=== PATIENT | male | born 1965 | race Caucasian/White ===

== ENCOUNTER 2019-03-14 10:52 | Emergency (ER) | payer OTHER ==
[~2019-03-14] VITALS: Ht 175.3 cm; Wt 83.9 kg
[2019-03-14] MEDS ORDERED: Lipitor20 MG PO (11:12)
[2019-03-14] MEDS ORDERED: TRULICITY0.75 MG/0. (11:12)
[2019-03-14] MEDS ORDERED: METF500 PO (11:13)
[2019-03-14] MEDS ORDERED: LISI5 PO (11:13)
[2019-03-14] MEDS ORDERED: GABA300 PO (11:15)
[2019-03-14] MEDS ORDERED: PIOGLITAZONE HC30 MG PO (11:15)
[2019-03-14] MEDS ORDERED: CEPH500 PO (12:20)
[2019-03-14] MEDS ORDERED: Bactrim Ds Tab1 EACH PO (12:20)
== END 2019-03-14 12:47 | disposition home or self-care (01) ==
LOC: ER 10:52
DX: S81.802A Unspecified open wound, left lower leg, initial encounter (principal); S81.801A Unspecified open wound, right lower leg, initial encounter; L02.511 Cutaneous abscess of right hand; E11.40 Type 2 diabetes mellitus with diabetic neuropathy, unspecified; Z79.899 Other long term (current) drug therapy; Z87.891 Personal history of nicotine dependence; X58.XXXA Exposure to other specified factors, initial encounter
CPT/HCPCS: 10060; 73140; 87070; 87077; 87147; 87186; 87205; 99283-25

== ENCOUNTER 2019-11-07 23:07 | Inpatient (IN) | payer OTHER ==
[~2019-11-07] VITALS: Ht 180.3 cm; Wt 91.5 kg
[~2019-11-07 23:07] MED LIST: Bactrim Ds Tab1 EACH PO; CEPH500 PO; GABA300 PO; LISI5 PO; Lipitor20 MG PO; METF500 PO; PIOGLITAZONE HC30 MG PO; TRULICITY0.75 MG/0.
[2019-11-07 23:53] LABS: BASOPHILS ABSOLUTE AUTO 0.03 K/mm3 (0.00-0.23); BASOPHILS PERCENT AUTO 1 % (0-2); EOSINOPHILS ABSOLUTE AUTO 0.15 K/mm3 (0.00-0.68); EOSINOPHILS PERCENT AUTO 2 % (0-6); Hematocrit 23.8 % (37.0-53.0); Hemoglobin 7.7 g/dL (13.5-17.5); IMMATURE GRAN ABSOLUTE AUTO 0.04 K/mm3 (0.00-0.10); IMMATURE GRAN PERCENT AUTO 1 % (0-1); LYMPHOCYTES ABSOLUTE AUTO 1.26 K/mm3 (0.84-5.20); LYMPHOCYTES PERCENT AUTO 19 % (21-46); MONOCYTES ABSOLUTE AUTO 0.49 K/mm3 (0.16-1.47); MONOCYTES PERCENT AUTO 7 % (4-13); Mean Corpuscular HGB 28.7 pg (26.0-34.0); Mean Corpuscular HGB Conc 32.4 g/dL (31.5-36.5); Mean Corpuscular Volume 89 fL (80-100); Mean Platelet Volume 9.6 fL (9.1-12.4); NEUTROPHILS ABSOLUTE AUTO 4.68 K/mm3 (1.96-9.15); NEUTROPHILS PERCENT AUTO 70 % (41-73); Platelet Count 246 K/mm3 (150-400); RDW Standard Deviation 54.3 fL (35.1-46.3); Red Blood Cell Count 2.68 M/mm3 (4.30-5.90); White Blood Cell Count 6.65 K/mm3 (4.00-11.30)
[2019-11-08 00:16] LABS: Alanine Aminotransfer (ALT/SGP 21 U/L (12-78); Albumin, Blood 1.5 g/dL (3.4-5.0); Albumin/Globulin Ratio 0.4 (0.8-1.8); Alk Phos 129 U/L (50-136); Anion Gap 3 mmol/L (6-16); Aspartate Aminotrans (AST/SGOT 21 U/L (12-37); Bilirubin, Total <0.1 mg/dL (0.1-1.0); Blood Urea Nitrogen 18 mg/dL (8-24); Bun/Creatinine Ratio 16.7 (12.0-20.0); CO2, Blood 30 mmol/L (21-32); Calcium, Blood 7.6 mg/dL (8.5-10.1); Chloride, Blood 109 mmol/L (98-108); Creatinine, Blood 1.08 mg/dL (0.60-1.20); Globulin, Blood 3.5 g/dL (2.2-4.0); Glomerular Filtration Rate >60 (60-); Glucose, Blood 384 mg/dL (70-99); Potassium, Blood 3.9 mmol/L (3.5-5.5); Sodium, Blood 142 mmol/L (136-145)
[2019-11-08 01:56] LABS: Percent Saturation 28.1 % (20.0-50.0)
[2019-11-08 02:06] LABS: RETICULOCYTE ABSOLUTE 0.1019 M/mm3 (0.0200-0.1100); RETICULOCYTE COUNT PERCENT 3.86 % (0.50-2.50)
--- NOTE | 2019-11-08 05:51 | NUR ---
NATIONAL SALES MANAGER SUMMARY NEW ADMIT FROM THE ED TONIGHT. AAOX4 AND PLEASANT. ADMITTED WITH ACUTE CHF WHICH IS NEW FOR THE PT. PT COMPLAINED OF SOB FOR SEVERAL DAYS ESPECIALLY WHILE LYING DOWN. 3+ PITTING EDEMA NOTED TO BLE AND ABD AND GENERALIZED EDEMA EVERYWHERE ELSE. FAINT CRACKLES NOTED IN BASES OF LUNGS. PT REPORTS BREATHING HAS IMPROVED. GOT 20 MG IV LASIX IN ER AND GIVEN 60 MG MORE ONCE HE ARRIVED TO THE FLOOR. PT CAME TO FLOOR ON 2L O2 VIA NC. WAS SATTING 99% SO BUMPED DOWN TO 1L. WILL REMOVE O2 THIS AM IF SATS STILL MAINTAINING. PT IS VERY WEAK AND STATES HE IS WHEELCHAIR BOUND AT HOME BUT OVER THE LAST FEW WEEKS HAS HAD TROUBLE GETTING HIMSELF TO HIS WHEELCHAIR AND HAS BEED BEDBOUND. PT STATES HE HAS HAD INCREASED NUMBNESS/WEAKNESS THAT STARTED IN HIS LEGS AND HAS PROGESSED OVER THE LAST FEW YEARS. PT REPORTS CHRONIC ISSUES WITH DIARRHEA BUT HAS NOT HAD BM SINCE COMING TO HOSPITAL. HYPERTENSIVE IN ER BUT BETTER AFTER IV HYDRALAZINE AND PO METOPROLOL. NSR IN LUIS FERNANDO 60'S ON TELEMETRY. WILL CONTINUE TO MONITOR.
--- NOTE | 2019-11-08 10:02 | NUR ---
PT IS VERY TIME CONSUMING WITH POSITIONING. AIDE AND RN HAVE BEEN IN MULTIPLE TIMES THIS MORNING TO ATTEMPT TO GET HIM COMFORTABLE. PT STATES HE IS UNABLE TO PARTICIPATE AND HELP YET MOVES HIS EXTREMITIES ON HIS OWN . PT CONTINUES TO WANT DIFFERENT POSITIONS AND WHEN PLACED IN THEM ASKS TO BE MOVED TO ANOTHER ONE.
[2019-11-08 10:17] LABS: Mean Corpuscular HGB 29.8 pg (26.0-34.0); Mean Corpuscular HGB Conc 33.7 g/dL (31.5-36.5); Mean Corpuscular Volume 88 fL (80-100); Platelet Count 194 K/mm3 (150-400); RDW Coefficient Variation 17.2 % (11.7-14.2); RDW Standard Deviation 53.1 fL (35.1-46.3); Red Blood Cell Count 0.94 M/mm3 (4.30-5.90); White Blood Cell Count 11.89 K/mm3 (4.00-11.30)
[2019-11-08 10:21] LABS: Hematocrit 8.3 % (37.0-53.0); Hemoglobin 2.8 g/dL (13.5-17.5)
[2019-11-08 10:34] LABS: CPK Creatine Kinase 124 U/L (39-308); Free Thyroxine 0.81 ng/dL (0.70-1.60); Troponin I <0.015 ng/mL (0.000-0.040)
[2019-11-08 10:37] LABS: Alanine Aminotransfer (ALT/SGP 23 U/L (12-78); Albumin, Blood 1.7 g/dL (3.4-5.0); Albumin/Globulin Ratio 0.6 (0.8-1.8); Alk Phos 115 U/L (50-136); Anion Gap 6 mmol/L (6-16); Aspartate Aminotrans (AST/SGOT 24 U/L (12-37); Bilirubin, Total <0.1 mg/dL (0.1-1.0); Blood Urea Nitrogen 19 mg/dL (8-24); Bun/Creatinine Ratio 16.7 (12.0-20.0); CO2, Blood 29 mmol/L (21-32); Calcium, Blood 7.6 mg/dL (8.5-10.1); Chloride, Blood 109 mmol/L (98-108); Creatinine, Blood 1.14 mg/dL (0.60-1.20); Glomerular Filtration Rate >60 (60-); Glucose, Blood 293 mg/dL (70-99); Potassium, Blood 3.4 mmol/L (3.5-5.5); Sodium, Blood 144 mmol/L (136-145); Total Protein, Blood 4.7 g/dL (6.4-8.2)
[2019-11-08 11:03] LABS: Hemoglobin 6.5 g/dL (13.5-17.5)
--- NOTE | 2019-11-08 12:00 | NUR ---
ICU NOTE Assumed care of pt upon arrival to ICU 5 at 1115. Pt arrived to unit accomapanied by Zoie LEE. Pt transferred to ICU due to hemoglobin of 2.8. Upon arrival to unit, pt alert and oriented to self and place. Answers questions appropriately. Able to verbalize needs. Follows commands. Denies lightheadness or dizziness. When asked if he is feeling short of breath, pt states "yes". When asked if shortness of breath is better or worse than when he came to hospital, he states he is not sure. Pt arrived wearing 2 LPM NC. SpO2 98-99%. Pt denies pain. Abdomen and back palpated, pt continues to deny pain. Pt is pale in appearance, but still has pink tones in skin. Full skin assessment performed. No bruising visible. Phelbotomist at bedside immediately upon pt arrival to draw type & screen and H&H. H&H rechecked to evaluate validity of specimen indicating HGB 2.8. Dr Maharaj at bedside to assess pt upon arrival to ICU. Provider states tea tree farm worker consultation is not necessary at this time. Dr Maharaj notified of results of H&H redraw. Provider orders for one unit of PRBCs to be transfused and pt may be transferred to PCU. Pt has liquid stool, GI panel and C. diff pending. Pt in contact isolation until negative results received. Pt has red and irritated skin to gluteal fold. Pt agreeable to insertion of rectal tube. Pt states he has to pee. Pt spent 15 minutes trying to void into urinal. Bladder scan performed. Greater than 500 mL in urine measured by bladder scanner. Pt agreeable to insertion of Barriga cathteter. 16 FR catheter inserted. 400 mL of hazy urine immediately into collection bag. Sample sent. Pt is profoundly weak. Bedbound at baseline. States he has not walked in over four months. States progressive weakness with no known cause. States he lives with his daughter. When asked about transferring to chair, pt states "I have to be hugged" in order to stand and transfer. This RN inquires if pt has a lift at home to help him stand up, he states no. This RN asks pt if he thinks his daughter is capable of providing all the care he needs. Pt states he is unsure and then verbalizes frustration about getting help with ADLs- he specifically speaks about his granddaughter not wanting to help him comb his hair. This RN updated pt's daughter, Trinity [phone], about transfer and further plan of care. Daughter verbalizes understanding. Daughter states they were in the process of transitioning pt to hospice, stating she has been in discussion with Agueda. This RN notified palliative care nurse, Ryanne LEE.
--- NOTE | 2019-11-08 12:15 | NUR ---
O2 TITRATION AND SKIN ASSESSMENT Titrated from 2 LPM NC to RA. SpO2 90% or greater. In addition to previous noted skin assessment, pt has several scabbed scratches to BLE. When asked about origin of scratches, pt states "I'm not sure. We have a cat at home but it doesn't come near me. I have really sharp nails but I think what's actually going on is my house is haunted."
[2019-11-08 12:48] LABS: Source, Urine Clean Catch
[2019-11-08 12:51] LABS: Bilirubin, Urine Neg (Neg); Blood, Urine 2+ (Neg); Glucose Qualitative, Urine 4+ (Neg); Ketones, Urine Neg (Neg); Leukocyte Esterase, Urine 2+ (Neg); Nitrite, Urine Neg (Neg); Protein, Urine 4+ (Neg); Urobilinogen, Urine NORM (Normal)
[2019-11-08 12:55] LABS: Campylobacter Sp Not Detected (NOT DETECT)
[2019-11-08 12:56] LABS: Adenovirus F 40/41 Not Detected (NOT DETECT); Astrovirus Not Detected (NOT DETECT); Cryptosporidium Not Detected (NOT DETECT); Cyclospora Cayetanensis Not Detected (NOT DETECT); E. Coli O157 Not Detected (NOT DETECT); Entamoeba Histolytica Not Detected (NOT DETECT); Enteroaggregative E. coli-EAEC Detected (NOT DETECT); Enteropathogenic E. coli-EPEC Not Detected (NOT DETECT); Enterotoxigenic E. coli-ETEC Not Detected (NOT DETECT); Giardia Lamblia Not Detected (NOT DETECT); Norovirus GI/GII Not Detected (NOT DETECT); Plesiomonas Shigelloides Not Detected (NOT DETECT); Rotavirus A Not Detected (NOT DETECT); Salmonella Sp Not Detected (NOT DETECT); Sapovirus Not Detected (NOT DETECT); Shiga Toxin-prod E. coli-STEC Not Detected (NOT DETECT); Shigella/Enteroin E. coli-EIEC Not Detected (NOT DETECT); Vibrio Cholerae Not Detected (NOT DETECT); Vibrio Sp Not Detected (NOT DETECT); Yersinia Enterocolitica Not Detected (NOT DETECT)
[2019-11-08 13:07] LABS: Color, Urine Pale Yellow (P-Yellow)
[2019-11-08 13:08] LABS: Appearance, Urine Hazy (Clear)
[2019-11-08 13:10] LABS: White Blood Cells, Urine 50-100 /hpf (0-5)
[2019-11-08 13:11] LABS: Bacteria Mod /hpf; Squamous Epithelial Cells Rare /hpf (Few)
--- NOTE | 2019-11-08 14:58 | NUR ---
CALL PLACED TO DR ELLINGTON AND TRANSFER TO PCU This RN placed call to Dr Ellington because pt was not tolerating Sosa catheter. Pt educated that it was inserted due to urinary retention. Pt threatens to pull catheter out. Per Dr Ellington, sosa catheter may be removed. This RN discussed results of urinalysis, GI panel with provider. Pt is likely colonized with C. diff as C. diff toxin is negative. Provider states he will review chart and decide if pt needs antibiotics for potential UTI. Telephone report given to Lesvia LEE. Pt worked with speech therapist, Trinity, prior to transfer to PCU. Pt taken to PCU 2 accompanied by PCT L[place]. Pt transferred via bed. Meds, chart, belongings transferred with patient.
[2019-11-08 16:41] LABS: CPK Creatine Kinase 151 U/L (39-308); Troponin I <0.015 ng/mL (0.000-0.040)
[2019-11-08 17:09] LABS: Hematocrit 26.6 % (37.0-53.0); Hemoglobin 8.6 g/dL (13.5-17.5)
--- NOTE | 2019-11-08 20:03 | NUR ---
SHIFT SUMMARY - TRANSFER NOTE RECEIVED REPORT FROM BERE CAMPOS RN IN ICU. PT TO ROOM VIA BED AT 1430; 4 PERSON TRANSFER ASSIST WITH SLIDER SHEET. PT RECEIVING 1 UNIT OF PRBC UPON TRANSFER. PT ORIENTED TO ROOM AND CALL LIGHT; PT PROVIDED WITH SOFT TOUCH CALL LIGHT HE STATES HE IS UNABLE TO SEE AND PRESSURE A REGULAR CALL LIGHT. PT A&Ox2; COOPERATIVE WITH CARE; IRRITABLE AT TIMES. PT DENIES PAIN, CHEST PAIN/PRESSURE, NAUSEA AND DIZZINESS. PT REPORTS SOB WITH ACTIVITY, SPO2 >90% ON RA SINCE T/O SHIFT. PT RECEIVING EYE DROPS FOR BILATERAL CONJUNCTIVITIS. RECTAL TUBE IN PLACE. PT REFUSED CATHETER AND IT WAS REMOVED IN ICU/ BP ELEVATED; OTHER VSS. NO OTHER ACUTE CHANGES NOTED DURING SHIFT. REPORT GIVEN TO ONCOMING RN.
[2019-11-09 01:50] LABS: BASOPHILS ABSOLUTE AUTO 0.04 K/mm3 (0.00-0.23); BASOPHILS PERCENT AUTO 1 % (0-2); EOSINOPHILS ABSOLUTE AUTO 0.12 K/mm3 (0.00-0.68); EOSINOPHILS PERCENT AUTO 1 % (0-6); Hematocrit 24.5 % (37.0-53.0); IMMATURE GRAN ABSOLUTE AUTO 0.05 K/mm3 (0.00-0.10); IMMATURE GRAN PERCENT AUTO 1 % (0-1); LYMPHOCYTES ABSOLUTE AUTO 1.23 K/mm3 (0.84-5.20); LYMPHOCYTES PERCENT AUTO 15 % (21-46); MONOCYTES ABSOLUTE AUTO 0.53 K/mm3 (0.16-1.47); MONOCYTES PERCENT AUTO 6 % (4-13); Mean Corpuscular HGB Conc 32.7 g/dL (31.5-36.5); Mean Corpuscular Volume 89 fL (80-100); Mean Platelet Volume 9.5 fL (9.1-12.4); NEUTROPHILS ABSOLUTE AUTO 6.51 K/mm3 (1.96-9.15); NEUTROPHILS PERCENT AUTO 77 % (41-73); Platelet Count 204 K/mm3 (150-400); RDW Coefficient Variation 17.2 % (11.7-14.2); RDW Standard Deviation 54.4 fL (35.1-46.3); Red Blood Cell Count 2.76 M/mm3 (4.30-5.90); White Blood Cell Count 8.48 K/mm3 (4.00-11.30)
[2019-11-09 02:02] LABS: Albumin, Blood 1.8 g/dL (3.4-5.0); Albumin/Globulin Ratio 0.5 (0.8-1.8); Bilirubin, Total 0.1 mg/dL (0.1-1.0); Bun/Creatinine Ratio 16.2 (12.0-20.0); Calcium, Blood 7.7 mg/dL (8.5-10.1); Creatinine, Blood 1.36 mg/dL (0.60-1.20); Globulin, Blood 3.3 g/dL (2.2-4.0); Magnesium, Blood 2.3 mg/dL (1.6-2.4); Potassium, Blood 3.7 mmol/L (3.5-5.5); Total Protein, Blood 5.1 g/dL (6.4-8.2); Troponin I 0.018 ng/mL (0.000-0.040)
[2019-11-09 02:22] LABS: Thyroid Stimulating Hormone 7.08 uIU/mL (0.360-4.800)
--- NOTE | 2019-11-09 06:26 | NUR ---
END OF SHIFT SUMMARY NO ACUTE CHANGES THIS SHIFT. VSS EXCEPT HTN, MEDS PER EMAR. PT'S NUMBNESS, WEAKNESS AND COMFORT HAVE BEEN ADDRESSED MULTIPLE TIMES THIS SHIFT. AT TIMES, PT TURNED AND REPOSITIONED EVERY 10 MINUTES. PT CAN BE VERY IRRITABLE AND UNGRATEFUL AT TIMES WELL BUT OTHER TIMES THANKFUL. PT NOTABLY STRUGGLING TO SEE BUT THIS IS BASELINE X'S A FEW MONTHS. RECTAL TUBE REMAINS IN PLACE FOR C. DIFF. VERY LITTLE OUTPUT. BLADDER SCANS X2 COMPLETED, PT RETAINING FLUIDS DESPITE BEING GIVEN DIURETICS. STRAIGHT CATH COMPLETED, 350 URINE OUT DESPITE BLADDER SCAN OF CLOSE TO 450. PT UPSET REGARDING DIET ORDERS, CONFORT, AND AROUND ASPECTS OF HEALTH. MUCH CARE HAS BEEN GIVEN TO THIS PATIENT IN TERMS OF TURNING, EDUCATION, ETC. WILL CONTINUE TO MONITOR UNTIL SHIFT CHANGE.
--- NOTE | 2019-11-09 10:00 | NUR ---
UPDATE PT ALERT AND ORIENTED. VS STABLE. HR SINUS RANCHO. O2 SATS REMAIN ABOVE 90% ON RA. RECTAL TUBE IN PLACE DRAINING LIQUID BROWN STOOL. PT DENIES ANY NAUSEA. PT REPOSITIONED NEEDED. DR. DIAZ IN THIS AM WITH ORDERS TO TRANSFER TO MEDICAL FLOOR AND DISCONTINUE TELEMETRY. AWAITING PLAN FROM GI STANDPOINT. PT STATES THAT HE WILL REFUSE A COLONOSCOPY. REPORT CALLED TO MEDICAL FLOOR RN. PT TAKEN UP BY BED.
[2019-11-09 17:09] LABS: Hematocrit 24.4 % (37.0-53.0); Hemoglobin 7.8 g/dL (13.5-17.5)
--- NOTE | 2019-11-09 19:00 | NUR ---
LATE ENTRY FOR SHIFT SUMMARY- PT IS A/O, COOPERATIVE. SLEPT INTERMITENTLY THROUGHOUT THIS SHIFT. PLAN TO PREFORM A COLONOSCOPY AND UPPER SCOPE TOMORROW. PT HGB WAS BELOW 8 AND BEGAN BLOOD TRANSFUSION PER DR. MCKEON ORDERS. NOTIFIED PT OF ORDERS FOR BOWEL PREP, PT STATED THAT HE DID NOT WANT A COLONOSCOPY, DISCUSSED WITH PT AND TOLD HIM THAT HE HAD THE RIGHT TO REFUSE IF HE DID NOT WANT THAT PROCEDURE. PT IS ON A LIQUID DIET. TOOK VITALS AND BEGAN BLOOD TRANSFUSION JUST BEFORE SHIFT CHANGE, GAVE REPORT TO ONCOMING NURSE JUST 15 MIN VITALS WERE DUE. PT SITTING UP IN BED AT THIS TIME
--- NOTE | 2019-11-09 20:45 | NUR ---
PATIENT ARRIVED TO ICU 5 VIA BED TRANSFER FROM ROOM 333 POST RESP CODE. PATIENT INTUBATED AND BEING BAGGED PER ETT BY RT. PROPOFOL INFUSING AT 40 MCG. PATIENT OPENING EYES AND MOVING SPONT, PROPOFOL INCREASED TO 50 MCG TO HELP PATIENT RELAX. PATIENT TRANSFERRED TO ICU BED USING SLIDER SHEET, PLACED ON ICU MONITORS AND PLACED ON VENT BY RT SET AT AC 16, TV 450, PEEP 5, FIO2 40%. OG PLACED, AND GUNN CATH PLACED WITH NO DIFFICULTY, CLOUDY YELLOW URINE DRAINING, SPEC SENT TO LAB. MIKE PATEL AT BEDSIDE.
[2019-11-09 21:14] LABS: BASOPHILS ABSOLUTE AUTO 0.03 K/mm3 (0.00-0.23); BASOPHILS PERCENT AUTO 1 % (0-2); EOSINOPHILS ABSOLUTE AUTO 0.11 K/mm3 (0.00-0.68); EOSINOPHILS PERCENT AUTO 2 % (0-6); Hematocrit 30.6 % (37.0-53.0); Hemoglobin 9.9 g/dL (13.5-17.5); IMMATURE GRAN ABSOLUTE AUTO 0.02 K/mm3 (0.00-0.10); IMMATURE GRAN PERCENT AUTO 0 % (0-1); LYMPHOCYTES ABSOLUTE AUTO 1.47 K/mm3 (0.84-5.20); LYMPHOCYTES PERCENT AUTO 23 % (21-46); MONOCYTES ABSOLUTE AUTO 0.45 K/mm3 (0.16-1.47); MONOCYTES PERCENT AUTO 7 % (4-13); Mean Corpuscular HGB 28.7 pg (26.0-34.0); Mean Corpuscular HGB Conc 32.4 g/dL (31.5-36.5); Mean Corpuscular Volume 89 fL (80-100); Mean Platelet Volume 10.3 fL (9.1-12.4); NEUTROPHILS ABSOLUTE AUTO 4.28 K/mm3 (1.96-9.15); NEUTROPHILS PERCENT AUTO 67 % (41-73); Platelet Count 247 K/mm3 (150-400); RDW Coefficient Variation 17.9 % (11.7-14.2); RDW Standard Deviation 56.6 fL (35.1-46.3); Red Blood Cell Count 3.45 M/mm3 (4.30-5.90); White Blood Cell Count 6.36 K/mm3 (4.00-11.30)
[2019-11-09 21:22] LABS: PCO2 Arterial 34.9 mmHg (35-45); PO2 Arterial 78.1 mmHg (80-100); pH Blood Arterial 7.52 (7.35-7.45)
[2019-11-09 21:42] LABS: Albumin, Blood 1.9 g/dL (3.4-5.0); Albumin/Globulin Ratio 0.5 (0.8-1.8); Bilirubin, Total 0.2 mg/dL (0.1-1.0); Bun/Creatinine Ratio 16.8 (12.0-20.0); Calcium, Blood 8.2 mg/dL (8.5-10.1); Creatinine, Blood 1.49 mg/dL (0.60-1.20); Free Thyroxine 0.92 ng/dL (0.70-1.60); Globulin, Blood 3.9 g/dL (2.2-4.0); Magnesium, Blood 2.4 mg/dL (1.6-2.4); Phosphorus, Blood 6.2 mg/dL (2.5-4.9); Potassium, Blood 4.5 mmol/L (3.5-5.5); Total Protein, Blood 5.8 g/dL (6.4-8.2)
[2019-11-09 21:43] LABS: Source, Urine Catheter
[2019-11-09 21:44] LABS: Triiodothyronine, Free 1.83 pg/mL (2.18-3.98)
[2019-11-09 21:45] LABS: Bilirubin, Urine Neg (Neg); Blood, Urine 2+ (Neg); Glucose Qualitative, Urine 3+ (Neg); Ketones, Urine Neg (Neg); Leukocyte Esterase, Urine 1+ (Neg); Nitrite, Urine Neg (Neg); Protein, Urine 4+ (Neg); Urobilinogen, Urine NORM (Normal)
[2019-11-09 21:51] LABS: Appearance, Urine Cloudy (Clear); Color, Urine Yellow (P-Yellow)
[2019-11-09 21:52] LABS: Amorphous Heavy (0-Heavy); Bacteria Few /hpf; Red Blood Cells, Urine 0-2 /hpf (0-2); Squamous Epithelial Cells Not Seen /hpf (Few)
[2019-11-09 22:03] LABS: U Amphetamine Screen Not Detected; U Barbituate Screen Not Detected; U Benzodiazapine Screen Not Detected; U Buprenorphine Screen Not Detected; U Cannabinoids Screen Not Detected; U Cocaine Screen Not Detected; U Methadone Screen Not Detected; U Methamphetamine Screen Not Detected; U Opiates Screen DETECTED; U Oxycodone Screen Not Detected; U Phencyclidine Screen Not Detected; U Propoxyphene Screen Not Detected
[2019-11-09 22:58] LABS: PCO2 Arterial 31.6 mmHg (35-45); PO2 Arterial 58.5 mmHg (80-100); pH Blood Arterial 7.57 (7.35-7.45)
--- NOTE | 2019-11-10 00:24 | NUR ---
11/09/192099 Patient had unit of blood checked and started at 1850 by Lillie Brown and Jeri Marquez just as this screen writer was coming on shift. Patient was assessed, He was alert and oriented, he was very pale, eyes red. Pt had edema in hands and legs and feet. 1929 vital signs were done and blood transfusion rate increased form 75 to 125 cc/hr. Pt stated he did not want a colonoscopy and refused the golytly. At about 2024 RESTAURANT TEAM MEMBER went into room to do blood sugar and it was 220. RESTAURANT TEAM MEMBER found pt to be cyanotic and with agonal breathing. Pt was unresponsive to verbal and sternal rub. Pt was a full code so a Code blue was called. Pt did have a pulse. Blood transfusion was stopped. Pt was intubated and transferred to ICU 5. Report was given to Irina. Daughter was notified of transfer by code team. All belongings were transferred with patient.
--- NOTE | 2019-11-10 00:30 | NUR ---
PATIENT GUNN TEMP PROBE READING 93.2 TEMPORAL READING 94.0 DESPITE WARM BLANKETS PLACED ON PATIENT AT 2130. BEAR HUGGER BLANKET PLACED OVER PATIENT. MIKE SYSTEM CONFIGURATION SPECIALIST AWARE OF LOW TEMP AND THAT HEAD CT AND CHEST CT ARE COMPLETE.
[2019-11-10 03:19] LABS: BASOPHILS ABSOLUTE AUTO 0.03 K/mm3 (0.00-0.23); BASOPHILS PERCENT AUTO 1 % (0-2); EOSINOPHILS PERCENT AUTO 2 % (0-6); Hematocrit 25.4 % (37.0-53.0); Hemoglobin 8.4 g/dL (13.5-17.5); IMMATURE GRAN ABSOLUTE AUTO 0.02 K/mm3 (0.00-0.10); IMMATURE GRAN PERCENT AUTO 0 % (0-1); LYMPHOCYTES ABSOLUTE AUTO 1.66 K/mm3 (0.84-5.20); LYMPHOCYTES PERCENT AUTO 26 % (21-46); MONOCYTES ABSOLUTE AUTO 0.58 K/mm3 (0.16-1.47); MONOCYTES PERCENT AUTO 9 % (4-13); Mean Corpuscular HGB 29.1 pg (26.0-34.0); Mean Corpuscular HGB Conc 33.1 g/dL (31.5-36.5); Mean Corpuscular Volume 88 fL (80-100); Mean Platelet Volume 9.7 fL (9.1-12.4); NEUTROPHILS ABSOLUTE AUTO 4.02 K/mm3 (1.96-9.15); NEUTROPHILS PERCENT AUTO 63 % (41-73); Platelet Count 204 K/mm3 (150-400); RDW Coefficient Variation 17.5 % (11.7-14.2); RDW Standard Deviation 55.2 fL (35.1-46.3); Red Blood Cell Count 2.89 M/mm3 (4.30-5.90); White Blood Cell Count 6.41 K/mm3 (4.00-11.30)
[2019-11-10 03:32] LABS: Bun/Creatinine Ratio 16.4 (12.0-20.0); Calcium, Blood 7.5 mg/dL (8.5-10.1); Creatinine, Blood 1.52 mg/dL (0.60-1.20); Potassium, Blood 3.1 mmol/L (3.5-5.5)
--- NOTE | 2019-11-10 04:45 | NUR ---
PATIENT OPENING EYES SPONTANEOUSLY, CHEWING ON ETT, PROPOFOL INCREASED TO 55MCG. GUNN TEMP PROBE READING 99.0 BEAR HUGGER OFF.
--- NOTE | 2019-11-10 06:00 | NUR ---
SUMMARY PATIENT REMAINS INTUBATED AND SEDATED WITH PROPOFOL AT 55 MCG. VENT AC 16, TV 450, PEEP 5, FIO2 40% SUCTIONING SMALL AMT OF CLEAR SECRETIONS. OG REMAINS CLAMPED. GENERALIZED SWELLING CONTINUES. BILAT WRIST RESTRAINTS TO PREVENT ACCIDENTAL EXTUBATION DUE TO UNPREDICTABLE SEDATION AND BEHAVIOR.
--- NOTE | 2019-11-10 08:30 | NUR ---
INITIAL ASSESSMENT PATIENT INTUBATED AND SEDATED. PATIENT RESPONDING TO NURSING CARE AND PAINFUL STIMULI. PATIENT HAS GROSS MOVEMENT NOTED TO EXTREMITIES AND GRIMACES TO ORAL CARE. NO PUPIL REACTION NOTED TO LIGHT, DOLL'S EYES NOTED. SKIN AROUND EYES REDDENED AND CRUSTING NOTED. NO SIGNS OF PAIN AT THIS TIME. PATIENT AFEBRILE. PATIENT SATTING 90% AND GREATER ON AC 16, TV 450, PEEP 5 AND 40% FIO2. LUNGS CLEAR IN UPPER LOBES AND DIMINISHED IN LOWER LOBES. PATIENT IN SR WITH PROLONGED QT INTERVAL. HR IN THE 60S. BP STABLE. SCDS IN PLACE. PATIENT EDEMATOUS ON MOST OF BODY. ABDOMEN MODERATELY DISTENDED, SOFT, WITH HYPOACTIVE BS NOTED. OG IN PLACE; CLAMPED AT THIS TIME. FINANCIAL SUPERVISOR STATED PATIENT'S BMS HAVE BEEN BROWN AND MUCOUSY. GUNN IN PLACE, DRAINING MINIMAL AMOUNT OF YELLOW COLORED URINE. PATIENT RECEIVING SCHEDULED LASIX BID. SKIN PALE IN COLOR. MANY SCABS NOTED TO BLES. GLUTEAL FOLD AND SACRUM REDDENED. RASH TO L AXILLA NOTED. PROPOFOL INFUSING AT 55 MCG/ KG/ MINUTE. PATIENT RECEIVING 40 MEQ KCL THIS AM FOR POTASSIUM OF 3.1. BED LOW, CALL LIGHT IN REACH. WILL CONTINUE TO MONITOR PATIENT FREQUENTLY THROUGHOUT SHIFT.
--- NOTE | 2019-11-10 11:07 | NUR ---
DR. SAMAYOA UPDATED ON PATIENT STATUS/ CONDITION. INFORMED THAT PATIENT EDEMATOUS. INFORMED THAT DR. DIAZ HERE TO SEE PATIENT THIS AM. DR. CAMPUZANO INFORMED NURSE THAT PATIENT AND HIS DAUGHTER HAD BEEN DISCUSSING COMFORT CARE FOR HIM BEFORE ADMIT. DR. SAMAYOA STATED SHE ORDERED PALLIATIVE CARE AND WILL HAVE SPEAK WITH DAUGHTER. INFORMED THAT PATIENT HAD TEMP DOWN TO 93 DEGREES FAHRENHEIT AND PLACED ON BARE HUGGER ON JUMPBASTING MACHINE OPERATOR PER NIGHT RN. PATIENT HAS NORMAL TEMP AT THIS TIME. INFORMED THAT PATIENT MAY HAVE UTI. INFORMED THAT PATIENT HAD POTASSIUM OF 3.1 AND THAT PATIENT RECEIVING 40 MEQ KCL THIS AM. INFORMED THAT PATIENT HAS OG IN PLACE AND IS CLAMPED. INFORMED THAT PATIENT UNABLE TO RECEIVE ORDERED CIPRO CANNOT CRUSH. INFORMED THAT PATIENT RECEIVING LASIX BID. NO ORDERS RECEIVED AT THIS TIME.
[2019-11-10 12:24] LABS: Magnesium, Blood 2.2 mg/dL (1.6-2.4); Potassium, Blood 3.6 mmol/L (3.5-5.5)
--- NOTE | 2019-11-10 12:30 | NUR ---
PATIENT REMAINS INTUBATED AND SEDATED. NO SIGNS OF PAIN. PATIENT AFEBRILE. PATIENT REMAINS SATTING 90% AND GREATER ON SAME VENT SETTINGS. PATIENT IN SB TO SR, HR 50S TO 60S. BP SOFT TO STABLE. URINE YELLOW, CLOUDY, WITH SEDIMENT NOTED. NO OTHER ACUTE CHANGES TO NOTE ON AT THIS TIME. WILL CONTINUE TO MONITOR.
--- NOTE | 2019-11-10 13:41 | NUR ---
BLOOD BANK CALLED AND SAID THAT TRANSFUSION REACTION WAS DETERMINED TO BE CIRCULATORY OVERLOAD AND TO INFUSE BLOOD SLOWLY IF ANOTHER UNIT NEEDED IN THE FUTURE.
--- NOTE | 2019-11-10 14:46 | NUR ---
Pt resting in bed and is intubated. Pt appears comfortable with no S/S of distress at this time. Conferenced with Dr Umana, Dr Garza, Bedside RN Gertrude, Criminal Analyst Tim, Caremanager Kerr, [facility] hot frame tender Kristie, and Pt's daughter Trinity. Trinity reports Pt's wishes are for end of life care and Amysis recently out to home for evaluation. Kristie from [facility] confirms Pt's wishes are for end of life care and wishes to avoid hospitalization. Dahiana Petersen confirms Pt would not want to be intubated or receive CPR or life sustaining measures. Care team is in agreement to follow Pt's wishes and plan is for Pt to have terminal withdrawal of care tomorrow 11/11/19. Dr Umaan will change code status to DNR. Plan is for staff to contact dahiana Petersen in the AM when withdrawal of care is ready to be initiated. Dahiana Petersen [phone] Palliative Care will remain available for therapeutic visits.
--- NOTE | 2019-11-10 15:06 | NUR ---
DR. SAMAYOA INFORMED THAT PATIENT URINE POSITIVE FOR ENTEROCOCCUS FAECALIS. INFORMED THAT PATIENT ON CIPRO IV. NO ORDERS RECEIVED AT THIS TIME.
--- NOTE | 2019-11-10 16:30 | NUR ---
PATIENT REMAINS INTUBATED AND SEDATED. AFEBRILE. NO SIGNS OF PAIN. PATIENT REMAINS SATTING 90% AND GREATER ON SAME VENT SETTINGS. PATIENT REMAINS IN SB, HR IN THE 50S. BP STABLE. PROPOFOL INFUSING AT 40 MCG/ KG/ MINUTE. NO OTHER ACUTE CHANGES TO NOTE ON AT THIS TIME. WILL CONTINUE TO MONITOR.
[2019-11-10 18:09] LABS: T-TRANSGLUTAMINASE (TTG) IGA <2 U/mL (0-3); T-TRANSGLUTAMINASE (TTG) IGG 4 U/mL (0-5)
--- NOTE | 2019-11-10 18:55 | NUR ---
SHIFT SUMMARY PATIENT REMAINED INTUBATED AND SEDATED. PATIENT REMAINS RESPONDING TO PAINFUL STIMULI. EYES REMAIN RED AND CRUSTING. PATIENT RECEIVING SCHEDULED EYE DROPS. PATIENT HAS REMAINED AFEBRILE. PATIENT HAS HAD NO SIGNS OF PAIN. PATIENT HAS REMAINED SATTING 90% AND GREATER ON AC 16, TV 450, PEEP 5 AND 40% FIO2. PATIENT HAS REMAINED IN SB TO SR WITH PROLONGED QT INTERVAL. HR 50S TO 60S. BP SOFT TO STABLE. SCDS REMAINED IN PLACE. ABDOMEN REMAINED MODERATELY DISTENDED, SOFT, WITH HYPOACTIVE BS NOTED. OG REMAINED CLAMPED. NO BM THIS SHIFT. GUNN DRAINED 418 MLS OF YELLOW, CLOUDY URINE WITH SEDIMENT NOTED. PATIENT CONTINUED TO RECEIVE SCHEDULED DIURETICS BID. NO CHANGE TO SKIN. PATIENT REPOSITIONED Q2H. PROPOFOL INFUSING AT 40 MCG/ KG/ MINUTE AND WAS HIGHEST AT 55 MCG/ KG/ MINUTE ON DAY SHIFT. PATIENT RECEIVING IV CIPRO. PATIENT HAD 40 MEQ KCL THIS AM. POTASSIUM WENT UP FROM 3.1 TO 3.6. BLOOD SUGARS 107 TO 128. PALLIATIVE CARE SPOKE WITH PATIENT'S DAUGHTER AND PATIENT PLANNED TO BE CHANGED TO COMFORT CARE TOMORROW WHEN DAUGHTER GETS HERE. PATIENT APPEARS COMFORTABLE AT THIS TIME. BED LOW, CALL LIGHT IN REACH. REPORT WILL BE GIVEN TO ASSUMING HOSPITAL SCIENTIST SHORTLY.
--- NOTE | 2019-11-10 19:10 | NUR ---
REPORT GIVEN TO ASSUMING RETURNED GOODS RECEIVING CLERK NURSE.
--- NOTE | 2019-11-10 22:23 | NUR ---
ASSUMED CARE OF PT AT 1900. PT IS LIGHTLY SEDATED AT PROPOFOL 50. VENT WAS AC 16 TV 450 PEEP 5 FIO2 40%. PT NOW 60% AFER SUCTIONING MULTIPLE HEAVY SECRETIONS. PT VOMITED SHORTLY ATER BATH WITH NRSE PRESENT, LARGE AMOUNT YELLOW. SUCTION STARTED, DOCTOR AWARE. REDUCTION IN CURRENT SECRETIONS.
--- NOTE | 2019-11-11 02:10 | NUR ---
BRIONNA DAWSON APPLIED TO PT FOR BODY TEMP OF 92.7 F. PT'S TEMP CONTINUED TO DROP TO 97.3, BEFORE REBOUNDING TO 93F AFTER CHANGING TO HIGH SETTING. WILL CONTINUE UNTIL PT'S TEMP RECOVERS.
[2019-11-11 03:37] LABS: BASOPHILS ABSOLUTE AUTO 0.02 K/mm3 (0.00-0.23); BASOPHILS PERCENT AUTO 0 % (0-2); EOSINOPHILS ABSOLUTE AUTO 0.06 K/mm3 (0.00-0.68); EOSINOPHILS PERCENT AUTO 1 % (0-6); Hemoglobin 8.5 g/dL (13.5-17.5); IMMATURE GRAN ABSOLUTE AUTO 0.02 K/mm3 (0.00-0.10); IMMATURE GRAN PERCENT AUTO 0 % (0-1); LYMPHOCYTES ABSOLUTE AUTO 1.06 K/mm3 (0.84-5.20); LYMPHOCYTES PERCENT AUTO 15 % (21-46); MONOCYTES ABSOLUTE AUTO 0.65 K/mm3 (0.16-1.47); MONOCYTES PERCENT AUTO 9 % (4-13); Mean Corpuscular HGB 28.9 pg (26.0-34.0); Mean Corpuscular HGB Conc 31.5 g/dL (31.5-36.5); Mean Platelet Volume 10.5 fL (9.1-12.4); NEUTROPHILS ABSOLUTE AUTO 5.45 K/mm3 (1.96-9.15); NEUTROPHILS PERCENT AUTO 75 % (41-73); Platelet Count 191 K/mm3 (150-400); RDW Coefficient Variation 17.9 % (11.7-14.2); RDW Standard Deviation 59.8 fL (35.1-46.3); Red Blood Cell Count 2.94 M/mm3 (4.30-5.90); White Blood Cell Count 7.26 K/mm3 (4.00-11.30)
[2019-11-11 03:38] LABS: Mean Corpuscular Volume 92 fL (80-100)
[2019-11-11 03:55] LABS: Bun/Creatinine Ratio 14.4 (12.0-20.0); Calcium, Blood 7.3 mg/dL (8.5-10.1); Creatinine, Blood 1.87 mg/dL (0.60-1.20); Magnesium, Blood 2.1 mg/dL (1.6-2.4); Phosphorus, Blood 5.5 mg/dL (2.5-4.9); Potassium, Blood 3.2 mmol/L (3.5-5.5)
--- NOTE | 2019-11-11 06:08 | NUR ---
PT HAD TWO VERY LARGE LIQUID BOWEL MOVEMENTS REQUIRING BATHING AND BED CHANGE, WELL A VERY LARGE YELLOW EMESIS. PT HAS BEEN SUCTIONED FOR LARGE AMOUNTS OF SALIVA SINCE, BUT NO EMESIS, AND NOT YELLOW. PT BODY TEMP HAS RISEN TO 98.1, BRIONNA HUGGER TURNING DOWN TO MEDIUM. PT'S EDEMA IS NOW TIGHT ON UPPER ARMS. ANASARCA AND LEGS REMAIN SAME. VET SETTINGS NOW AC 16, TV 45, PEEP 5, FIO2 40%.
[2019-11-11 07:09] LABS: COMPLEMENT C4, SERUM 28 mg/dL (14-44)
--- NOTE | 2019-11-11 07:37 | NUR ---
ASSUMED CARE OF PT AT 0700. REPORT FROM MARRY LEE. PT INTUBATED AND SEDATED. VENT SETTINGS AC 16/450/5/40%. PROPOFOL INCREASED TO 45 MCG/KG/MIN. PT GRIMACES c CARE. DOES NOT FOLLOW DIRECTIONS. COUGH REFLEX PRESENT. LUNGS CLEAR. THICK WHITE/YELLOW SECRETIONS THROUGH ETT. PT PALE, WARM. TEMP 99.1. BRIONNA HUGGER REMOVED. OGT TO LOW INTERMITTANT SUCTION, BROWN EMESIS IN CANISTER. ABD ROUND, SOFT, NON TENDER. BT HYPOACTIVE. TEMP PROBE GUNN IN PLACE, PATENT, DRAINING CLEAR YELLOW URINE TO GRAVITY. SCROTAL SWELLING NOTED. MULTIPLE ABRASIONS AND ULCERATIONS TO LOWER EXTREMITIES, WORSE ON RIGHT. 2+ EDEMA TO LOWER EXTREMITIES, 3+ TO UPPER EXTREMITIES. GROSS MOVEMENT TO ALL EXTREMITIES. VSS PLAN FOR EXTUBATION TO HOSPICE CARE THIS SHIFT. WILL CONTINUE TO MONITOR.
[2019-11-11 15:10] LABS: RNP ANTIBODIES <0.2 AI (0.0-0.9); SJOGREN'S ANTI-SS-A <0.2 AI (0.0-0.9); SJOGREN'S ANTI-SS-B <0.2 AI (0.0-0.9); SMITH ANTIBODIES <0.2 AI (0.0-0.9)
--- NOTE | 2019-11-11 16:35 | NUR ---
AYLIN PRINCE AND CHRISTIAN, RT, AZEB BRITTON AND DR SAMAYOA AT BEDSIDE. PROPOFOL PLACED ON STANDBY AT 1554. PT ABLE TO FOLLOW COMMANDS. VENT SETTINGS CHANGED TO SPONTANEOUS, PT TOLERATING WELL. EXTUBATED AT 1619. PLACED ON 4L VIA NC. PT SPEAKS c SOFT HOARSE VOICE. STATES "I DONT HAVE ANY DAUGHTERS." PT APPEARS ANGRY. DOES NOT ANSWER OTHER QUESTIONS. VSS. WILL REASSESS MENTATION.
--- NOTE | 2019-11-11 16:55 | NUR ---
Pt's daughters Trinity and Adwoa have arrived for terminal extubation. Paper Supervisordelta Cohen and Bedside RN Tawana also present. Pt extubated and appears confused. Pt appears angry as evidenced by stating he does not have any daughters. Difficult to assess Pt's orientatioon. Pt does not answer questions regarding orientation. Daughter Trinity also appears angry and does not speak to Pt as she stands at bedside. Daughter Adwoa remains seated and is tearful. Emotional support offered. This RN revisted events leading up to this hospital stay including hospice to his home for evaluation. Asked Pt if hospice is still his goal with Pt stating "I don't know". Discussed with daughters regarding goals of care. Daughers agreeable for supportive care until Pt is more appropriate. Instructed daughters to call Palliative Care will any questions or concerns. Discussed case further with Bedside JESUS Gilliam, Dr Umana, and Chaplain Cohen. Plan will be supportive care until Pt's mentation improves. Palliative Care will remain available.
--- NOTE | 2019-11-11 17:18 | NUR ---
Initial spiritual care note: Provided supervisor counseling and guidance and comfort to pt's two dtrs before, during, and post extubation. Trinity cares for her dad in her home. Adwoa has been estranged from pt for 9 years. Both dtrs were quiet and withdrawn. Adwoa was tearful as she spoke to me about the reasons for their estrangement. Mr. Corona appeared angry and stated "I don't have any dtrs" which led to more tearfulness from Adwoa and Trinity. It was unclear to me that Mr. Corona understood questions or statements. He did admit to feeling angry, but could not clarify further. Offer of prayer declined. I will remain available.
--- NOTE | 2019-11-11 17:44 | NUR ---
SHIFT SUMMARY PT EXTUBATED THIS SHIFT. PLAN TO EXTUBATE TO COMFORT CARE. UPON EXTUBATION, PT DID NOT ACKNOWLEDGE DAUGHTERS AT BEDSIDE. WHEN ASKED BY AZEB FROM [facility] IF HE WISHED TO PURSUE HOSPICE, PT STATES "I DONT KNOW." PT REMAINS DNR STATUS, SUPPORTIVE CARE, PLAN TO REEVALUATE TOMORROW WHEN PT'S MENTATION IMPROVES. POST EXTUBATION, PT KNOWS YEAR, DOES NOT KNOW LOCATION. ABLE TO MAKE NEEDS KNOWN. DIFFICULT TO REPOSITION FOR COMFORT, MULTIPLE ATTEMPTS. LUNGS REMAIN COARSE, O2 SATS >95% ON 4L VIA NC. VSS. WILL CONTINUE TO MONITOR UNTIL REPORT TO ONCOMING NURSE.
--- NOTE | 2019-11-11 20:00 | NUR ---
INITAL SHIFT ASSESSMENT BED SIDE REPORT RECIEVED FROM OFF GOING RN. PT IS RESTING WITH EYES CLOSED IN BED. HE APPEARS TO HAVE NO RESPIRATORY DISTRESS AT REST. 4L N/C IN PLACE SATS 98%. N/C TITRATED DOWN TO 2L WHILE THIS RN IN ROOM. PT WOKE TO THIS NURSES VERBAL STIMULI. HE LOOKED AROUND THE ROOM AND ASKED WHERE HE WAS AND THIS RN STATED HE WAS IN THE HOSPITAL. HE STATED I KNOW THAT WHAT [place] AM I IN. PT WAS ABLE TO TELL THIS RN HIS DATE OF AND NAME. PT STATES HE IS UNCOMFORTABLE AND WANTED TO BE ADJUSTED IN BED. SECOND RN CALLED IN ROOM TO HELP. TWO RN'S THEN SPENT 15 MIN HELPING ADJUST PILLOWS AND HELP PT GET COMFORTABLE. THIS RN STAYED IN ROOM AND CON'T TO HELP PT WITH PILLOWS. THE PT PROCEDED TO CUSS AT THIS NURSE ALSO STATING WE WERE TRYING TO KILL HIM AND THAT HE WAS GOING TO . WHEN ASKED ABOUT PAIN HE STATED HE WAS IN PAIN AND WAS JUST GOING TO BE THAT WAY ALL NIGHT. FENTANYL IV WAS GIVEN TO PT SEE EMAR. THIS RN CON'T TO HELP PT WITH PILLOWS/LEGS/ARMS. HE IS NOW RESTING ON HIS LEFT SIDE AND APPEARS TO BE COMFORTABLE. IV TO LEFT HAND IS PATENT WITH BLOOD DRAWING BACK IN LINE. ARMS AND LEGS HAVE 3 PLUS EDEMA NOTED. GUNN CATH IN PLACE AND PATENT WITH YELLOW URINE. SCROTUM HAS EDEMA WELL. ATTENDS IN PLACE. WILL CON'T TO MONITOR AND KEEP PT SAFE T/O SHIFT. CALL LIGHT IN REACH. HOWEVER PT STATES HE CANNOT USE CALL LIGHT AND HE WILL JUST YELL IF HE NEEDS SOMETHING. PT HAS A VERY SOFT VOICE. ROOM TO DOOR IS LEFT OPEN.
--- NOTE | 2019-11-11 23:35 | NUR ---
ASSESSMENT PT HAS BEEN VERY UNPLESANT WITH ANY OF HIS CARE THIS EVENING. HE HAS BEEN CUSSING AT STAFF FOR ANY REASON. HE OVERALL SEEMS VERY UNSETTLED WITH HIS CARE TONIGHT. OFFERED HIM SOME ICE CHIPS AND HE STATES THAT WE ARE TRYING TO KILL HIM. HE IS REQUESTING TO GET UP TO A CHAIR AND WALK. OFFERED TO USE A LIFT AND HE STATES NO THAT AGAIN WE ARE TRYING TO KILL HIM WITH A LIFT. PT SITTING IN AN UPRIGHT POSITION AND RESTING WITH EYES CLOSED. PT REFUSED TO WEAR OXYGEN. SATS ARE HOLDING AT THIS TIME LOW 90'S. CHANGED BP TO ONLY BE MEASURED EVERY HOUR PER PT'S REQUEST THAT WE WERE BREAKING HIS ARM. WILL CON'T TO MONITOR AND KEEP PT SAFE T/O SHIFT.
--- NOTE | 2019-11-12 05:57 | NUR ---
SHIFT SUMMARY PT IS STABLE AT THIS TIME. HE CON'T TO REFUSE TO WEAR OXYGEN. SATS DROP R/T WHAT APPEARS TO BE SLEEP APNEA. PT DENIES HAVING ANY SLEEP APNEA AND STATES HE WILL NEVER WEAR OXYGEN. VITALS ARE STABLE OTHERWISE. PT CON'T TO BE FAIRLY NON COOPERTIVE WITH HIS CARE. PT CON'T TO CUSS AT NURSE WITH MOST ANY INTERACTION WITH NURSING CARE. GOOD URINE OUTPUT T/O SHIFT. EDEMA IN HANDS SEEM TO BE BETTER. PT IS CURRENTLY IN THE UPRIGHT POSITION. WILL CON'T TO MONITOR AND KEEP PT SAFE TILL REPORT TO ONCOMING RN.
[2019-11-12 06:10] LABS: ANTI-DSDNA ANTIBODIES <1 IU/mL (0-9); COMPLEMENT C3, SERUM 102 mg/dL (82-167)
[2019-11-12 06:41] LABS: BASOPHILS ABSOLUTE AUTO 0.03 K/mm3 (0.00-0.23); BASOPHILS PERCENT AUTO 0 % (0-2); EOSINOPHILS ABSOLUTE AUTO 0.16 K/mm3 (0.00-0.68); EOSINOPHILS PERCENT AUTO 2 % (0-6); Hematocrit 28.3 % (37.0-53.0); Hemoglobin 8.7 g/dL (13.5-17.5); IMMATURE GRAN ABSOLUTE AUTO 0.03 K/mm3 (0.00-0.10); IMMATURE GRAN PERCENT AUTO 0 % (0-1); LYMPHOCYTES ABSOLUTE AUTO 1.27 K/mm3 (0.84-5.20); LYMPHOCYTES PERCENT AUTO 19 % (21-46); MONOCYTES ABSOLUTE AUTO 0.82 K/mm3 (0.16-1.47); MONOCYTES PERCENT AUTO 12 % (4-13); Mean Corpuscular HGB 28.1 pg (26.0-34.0); Mean Corpuscular HGB Conc 30.7 g/dL (31.5-36.5); Mean Corpuscular Volume 91 fL (80-100); Mean Platelet Volume 10.3 fL (9.1-12.4); NEUTROPHILS ABSOLUTE AUTO 4.44 K/mm3 (1.96-9.15); NEUTROPHILS PERCENT AUTO 66 % (41-73); Platelet Count 217 K/mm3 (150-400); RDW Coefficient Variation 17.5 % (11.7-14.2); RDW Standard Deviation 58.2 fL (35.1-46.3); White Blood Cell Count 6.75 K/mm3 (4.00-11.30)
[2019-11-12 06:58] LABS: Calcium, Blood 7.8 mg/dL (8.5-10.1); Creatinine, Blood 1.93 mg/dL (0.60-1.20); Phosphorus, Blood 6.9 mg/dL (2.5-4.9); Potassium, Blood 3.7 mmol/L (3.5-5.5)
--- NOTE | 2019-11-12 10:48 | NUR ---
ASSUMED CARE OF PT AT 0700. REPORT FROM ABEBA LEE. PT WAKES c VERBAL STIMULI. A&OX 3. ANSWERS QUESTIONS APPROPRIATELY. PT HAD LONG DISCUSSION c DR DIAZ. PT CODE STATUS CHANGED TO FULL CODE. PT STATES THAT HE DOES NOT WISH TO . STATES HE WILL BE COOPERATIVE c CARE AND PLAN. PT INTERMITTANTLY ANGRY WHEN SPEAKING OF DAUGHTER OR WHEN FRUSTRATED c QUESTIONS DURING ASSESSMENT. MOSTLY CALM. ABLE TO REDIRECT. WEAK IN ALL EXTREMITIES. CONTINUES TO HAVE 3+ EDEMA TO ALL EXTREMITIES. PT PASSED BEDSIDE SWALLOW EVAL s DIFFICULTIES, WILL CHANGE DIET ORDER TO MECHANICAL SOFT D/T POOR DENTATION. LUNGS DIMINISHED IN BASES. PT PALE, WARM, DRY. ABD ROUND, SOFT, NON TENDER. BT X 4. GUNN PATENT AND DRAINING TO GRAVITY. WILL CONTINUE TO DIKENDRICKE, D/C CIPRO, PLAN FOR MRI AND CHANGE CODE STATUS TODAY. WILL CONTINUE TO MONITOR.
--- NOTE | 2019-11-12 11:10 | NUR ---
11/08/19 TRANSFER NOTE PT HAD CRITICAL HH VALUE. DOCTOR NOTIFIED AND PT WAS TRANSFERRED TO ICU. GAVE REPORT TO BERE LEE. PT TAKEN DOWN VIA BED BY STAFF.
[2019-11-12 14:11] LABS: A/G RATIO 0.7 (0.7-1.7); ALBUMIN 1.6 g/dL (2.9-4.4); ALPHA-1-GLOBULIN 0.3 g/dL (0.0-0.4); ALPHA-2-GLOBULIN 0.7 g/dL (0.4-1.0); BETA GLOBULIN 0.7 g/dL (0.7-1.3); GAMMA GLOBULIN 0.6 g/dL (0.4-1.8); GLOBULIN, TOTAL 2.2 g/dL (2.2-3.9); M-SPIKE Not Observed g/dL (Not Observed); PROTEIN, TOTAL, SERUM 3.8 g/dL (6.0-8.5)
--- NOTE | 2019-11-12 16:20 | NUR ---
SHIFT SUMMARY FROM ICU. PT TRANSFERRED TO PCU AT 1620. ALL BELONGINGS c PT. PT HAD MRI HEAD/NECK COMPLETED TODAY. DIET PROGRESSED s DIFFICULTY. GOOD APPETITE. PT CONTINUES TO BE WEAK, MOVES ARMS IN BED, DOES NOT SHIFT HIPS OR REPOSITION LEGS. PT DIFFICULT TO REPOSITION FOR COMFORT. TEMP PROBE GUNN REMOVED FOR MRI. ATTENDS IN PLACE. ATTEMPTED TO USE URINAL ONCE UNSUCCESSFULLY. CONTINUES TO HAVE EDEMA TO EXTREMITIES AND SCROTUM. PT DOES NOT WEAR O2, OCCASIONALLY O2 SATS DECREASE FOR VERY SHORT PERIODS OF TIME, INCREASE c STIMULATION. PER PT, PERMISSION TO UPDATE DAUGHTERS. COMPLETED. PT OCCASIONALLY IRRITABLE ABOUT CARE OR PROCEDURES BUT REDIRECTABLE. REPORT TO NAREN LEE.
--- NOTE | 2019-11-12 17:32 | NUR ---
SHIFT NOTE PT ARRIVES FROM ICU A/O. PT ANSWERS QUESTIONS APPROPRIATELY IN SHORT HOSTILE ANSWERS. PT'S DEMEANOR DOES IMPROVE AFTER ARRIVAL. PT WITH SCATTERED ABRASIONS T/O LOWER EXTREMETIES. 2+ EDEMA NOTED TO BUE AND BLE. PT REPORTS THAT HE NEEDED TO URINATE UPON ARRIVAL BUT WAS UNABLE TO URINATE, BLADDER SCAN PERFORMED NOTED TO HAVE >995ML URINE IN BLADDER. DR DIAZ CALLED ORDERS OBTAINED FOR GUNN CATH. URINE SENT TO LAB POST GUNN PLACEMMENT. 800ML RETURN OF CLEAR YELLOW URINE NOTED IN GUNN. PT PLACED IN CONTACT ISOLATION FOR C-DIFF. URINE IS DRAINING WELL TO GRAVITY
[2019-11-12 17:37] LABS: Source, Urine Catheter
[2019-11-12 18:07] LABS: Bilirubin, Urine Neg (Neg); Blood, Urine 2+ (Neg); Glucose Qualitative, Urine 2+ (Neg); Ketones, Urine Neg (Neg); Leukocyte Esterase, Urine Neg (Neg); Nitrite, Urine Neg (Neg); Protein, Urine 3+ (Neg); Urobilinogen, Urine NORM (Normal)
[2019-11-12 18:22] LABS: Appearance, Urine Clear (Clear); Color, Urine Pale Yellow (P-Yellow)
[2019-11-12 18:31] LABS: Amorphous Light (0-Heavy); Bacteria Few /hpf; Squamous Epithelial Cells Not Seen /hpf (Few); White Blood Cells, Urine Rare /hpf (0-5)
--- NOTE | 2019-11-12 22:00 | NUR ---
SLEEP STUDY IN PROGRESS.
--- NOTE | 2019-11-13 03:20 | NUR ---
PT REFUSED VITAL SIGNS. PT DID REQUEST AND ALLOW REPOSITIONING.
[2019-11-13 06:10] LABS: BASOPHILS ABSOLUTE AUTO 0.02 K/mm3 (0.00-0.23); BASOPHILS PERCENT AUTO 0 % (0-2); EOSINOPHILS ABSOLUTE AUTO 0.17 K/mm3 (0.00-0.68); EOSINOPHILS PERCENT AUTO 2 % (0-6); Hematocrit 28.5 % (37.0-53.0); Hemoglobin 9.2 g/dL (13.5-17.5); IMMATURE GRAN ABSOLUTE AUTO 0.03 K/mm3 (0.00-0.10); IMMATURE GRAN PERCENT AUTO 0 % (0-1); LYMPHOCYTES PERCENT AUTO 14 % (21-46); MONOCYTES ABSOLUTE AUTO 0.86 K/mm3 (0.16-1.47); MONOCYTES PERCENT AUTO 10 % (4-13); Mean Corpuscular HGB 29.1 pg (26.0-34.0); Mean Corpuscular HGB Conc 32.3 g/dL (31.5-36.5); Mean Corpuscular Volume 90 fL (80-100); NEUTROPHILS ABSOLUTE AUTO 6.22 K/mm3 (1.96-9.15); NEUTROPHILS PERCENT AUTO 73 % (41-73); Platelet Count 253 K/mm3 (150-400); RDW Coefficient Variation 16.6 % (11.7-14.2); RDW Standard Deviation 55.3 fL (35.1-46.3); Red Blood Cell Count 3.16 M/mm3 (4.30-5.90)
--- NOTE | 2019-11-13 06:30 | NUR ---
SHIFT SUMMARY PT SLEEPING IN ROOM COMFORTABLY AT THIS TIME. NO ACUTE CHANGES IN STATUS T/O NIGHT. PT REPORTS DID NOT SLEEP AT ALL. THIS RN OBSERVED PT SLEEPING MULTIPLE TIMES T/O NIGHT SOUNDLY DURING SLEEP STUDY. RESP EVEN UNLABORED ON RA W. SATS >92%. DENIED CP OR SOB T/O NIGHT. PT HAS BEEN UNCOOPERATIVE WITH CARE AT TIMES. AND REFUSED VITAL SIGNS THIS AM. CALL LIGHT IN REACH.
[2019-11-13 06:33] LABS: Albumin, Blood 1.4 g/dL (3.4-5.0); Albumin/Globulin Ratio 0.4 (0.8-1.8); Bilirubin, Total 0.1 mg/dL (0.1-1.0); Bun/Creatinine Ratio 12.6 (12.0-20.0); Calcium, Blood 7.9 mg/dL (8.5-10.1); Creatinine, Blood 1.99 mg/dL (0.60-1.20); Potassium, Blood 4.2 mmol/L (3.5-5.5); Total Protein, Blood 5.4 g/dL (6.4-8.2)
--- NOTE | 2019-11-13 12:58 | NUR ---
REPORT TO DARLINE LEE ON MEDICAL FLOOR
[2019-11-13 19:08] LABS: ALDOLASE 6.8 U/L (3.3-10.3)
--- NOTE | 2019-11-13 20:14 | NUR ---
BLOOD ADMINISTRATION ORDER DC BLOOD ADMINISTRATION ORDER. TO MY KNOWLEDGE, THE BLOOD WAS STARTED AT 1900 BY THE DAYSHIFT NURSE PROVEN BY HER NOTES THAT NIGHT. WHEN THE MEDIA ANALYST NURSE COME ON, THE PATIENT WAS UNRESPNSIVE AND A RAPID RESPONSE WAS INITIATED. BLOOD TRANSFUSION WAS STOPPED AND THE PATIENT WAS TRANSFERED TO ICU. WHEN THE NIGHT NURSE TRIED TO STOP THE ADMINISTRATION BLOOD ORDER, THE BLOOD WAS NOT DOCUMENTED ON THE EMAR STARTED STATED TO THIS NURSE BY THIS SPECIFIC NURSE. NOW THE PATIENT IS BACK ON MEDICAL FLOOR IN ROOM 325 WITH ORDERED TO ADMINISTER BLOOD. PT HBG IS STABLE, DISCUSSED WITH CHARGE NURSE WHAT HAD HAPPENED AND AGREED TO DC THE ORDER.
--- NOTE | 2019-11-14 03:36 | NUR ---
SHIFT SUMMARY ASSUMED CARE OF PT AT 1900. PT IS A/O X4, DENIES N/T IN EXTREMITIES. HEART SOUNDS REGULAR, LUNG SOUNDS DIMINISHED AND TIGHT, DENIES CP/SOB AT THIS TIME. PT IS EDEMEDOUS T/O HIS BODY, +2 PITING EDEMA. PT HAS A CATHETER, DRAINING CLEAR URINE. PT HAS RED DOTS T/O ON HIS SKIN. PT IS A MAXIUM ASSIST IN BED AND IS BED BOUND AT BASELINE. PT SLEPT T/O THE NIGHT, NO ACUTE EVENTS. CALL LIGHT IN REACH, BED IN LOWEST POSTION, WILL CONTINUE TO MONITOR UNTIL DAYSHIFT NURSE ARRIVES.
[2019-11-14 04:50] LABS: BASOPHILS ABSOLUTE AUTO 0.02 K/mm3 (0.00-0.23); BASOPHILS PERCENT AUTO 0 % (0-2); EOSINOPHILS ABSOLUTE AUTO 0.26 K/mm3 (0.00-0.68); EOSINOPHILS PERCENT AUTO 4 % (0-6); Hematocrit 25.8 % (37.0-53.0); Hemoglobin 8.2 g/dL (13.5-17.5); IMMATURE GRAN ABSOLUTE AUTO 0.03 K/mm3 (0.00-0.10); IMMATURE GRAN PERCENT AUTO 0 % (0-1); LYMPHOCYTES PERCENT AUTO 18 % (21-46); MONOCYTES ABSOLUTE AUTO 0.81 K/mm3 (0.16-1.47); MONOCYTES PERCENT AUTO 11 % (4-13); Mean Corpuscular HGB 28.6 pg (26.0-34.0); Mean Corpuscular HGB Conc 31.8 g/dL (31.5-36.5); Mean Corpuscular Volume 90 fL (80-100); Mean Platelet Volume 10.4 fL (9.1-12.4); NEUTROPHILS ABSOLUTE AUTO 4.66 K/mm3 (1.96-9.15); NEUTROPHILS PERCENT AUTO 66 % (41-73); Platelet Count 241 K/mm3 (150-400); RDW Coefficient Variation 15.9 % (11.7-14.2); RDW Standard Deviation 53.1 fL (35.1-46.3); Red Blood Cell Count 2.87 M/mm3 (4.30-5.90); White Blood Cell Count 7.08 K/mm3 (4.00-11.30)
[2019-11-14 05:15] LABS: Albumin, Blood 1.4 g/dL (3.4-5.0); Albumin/Globulin Ratio 0.4 (0.8-1.8); Bilirubin, Total 0.3 mg/dL (0.1-1.0); Bun/Creatinine Ratio 14.9 (12.0-20.0); Calcium, Blood 7.5 mg/dL (8.5-10.1); Creatinine, Blood 1.61 mg/dL (0.60-1.20); Globulin, Blood 3.7 g/dL (2.2-4.0); Potassium, Blood 3.6 mmol/L (3.5-5.5); Total Protein, Blood 5.1 g/dL (6.4-8.2)
--- NOTE | 2019-11-14 07:42 | NUR ---
PT O2 SAT 89% AT 0739. PT REFUSED O2 VIA NC AT THIS TIME.
--- NOTE | 2019-11-14 16:38 | NUR ---
SHIFT SUMMARY PT AXO, COOPERATIVE WITH CARE THOUGH VERY UPSET THIS MORNING REGARDING BREAKFAST. NURSE PROVIDED ACTIVE LISTENING AND THERAPEUTIC COMMUNICATION. PT CALM THROUGHOUT THE REST OF THE DAY. PT COMPLAINED OF ITCHING OF LLOWER FLANK. DR SANTO NOTIFIED OF ITCHING AND MILD RASH, NEW ORDERS INITIATED. VSS THOUGH PT REFUSING O2 VIA NC, STATING THAT HE "FEELS FINE." PT ALSO REFUSED OOB AND REPOSITIONING FOR MOST OF THE DAY. BED IN LOW POSITION, CALL LIGHT WITHIN REACH. GUNN PATENT AND DRAINING CLEAR YELLOW URINE.
--- NOTE | 2019-11-15 02:10 | NUR ---
SHIFT SUMMARY ASSUMED CARE OF PT AT 1900. PT IS A/OX4, DENIES N/T IN EXTREMITIES. HEART SOUNDS REGULAR, TELE SHOWS SINUS @ 77, DENIES CP AT THIS TIME. LUNG SOUNDS ARE DIMINISHED, PT DENIES SOB AT THIS TIME. PT REFUSES TO BE TURNED DURING THE NIGHT, STATING HE IS COMFORTABLE WHERE HE IS. CATHETER DRAINING CLEAR URINE. NO ACUTE EVENTS DURING THE NIGHT. PT SLEPT T/O THE NIGHT EXCEPT WHEN AWOKEN FOR CARE. CALL LIGHT IN REACH, BED IN LOWEST POSTION, WILL CONTINUE TO MONITOR UNTIL DAYSHIFT NURSE ARRIVES.
[2019-11-15 04:53] LABS: BASOPHILS ABSOLUTE AUTO 0.03 K/mm3 (0.00-0.23); BASOPHILS PERCENT AUTO 1 % (0-2); EOSINOPHILS ABSOLUTE AUTO 0.43 K/mm3 (0.00-0.68); EOSINOPHILS PERCENT AUTO 7 % (0-6); Hematocrit 25.3 % (37.0-53.0); Hemoglobin 7.9 g/dL (13.5-17.5); IMMATURE GRAN ABSOLUTE AUTO 0.02 K/mm3 (0.00-0.10); IMMATURE GRAN PERCENT AUTO 0 % (0-1); LYMPHOCYTES ABSOLUTE AUTO 1.46 K/mm3 (0.84-5.20); LYMPHOCYTES PERCENT AUTO 23 % (21-46); MONOCYTES ABSOLUTE AUTO 0.76 K/mm3 (0.16-1.47); MONOCYTES PERCENT AUTO 12 % (4-13); Mean Corpuscular HGB 28.2 pg (26.0-34.0); Mean Corpuscular HGB Conc 31.2 g/dL (31.5-36.5); Mean Corpuscular Volume 90 fL (80-100); NEUTROPHILS ABSOLUTE AUTO 3.76 K/mm3 (1.96-9.15); NEUTROPHILS PERCENT AUTO 58 % (41-73); Platelet Count 222 K/mm3 (150-400); RDW Coefficient Variation 15.7 % (11.7-14.2); White Blood Cell Count 6.46 K/mm3 (4.00-11.30)
[2019-11-15 05:17] LABS: Albumin, Blood 1.3 g/dL (3.4-5.0); Albumin/Globulin Ratio 0.4 (0.8-1.8); Bilirubin, Total 0.3 mg/dL (0.1-1.0); Bun/Creatinine Ratio 16.8 (12.0-20.0); Calcium, Blood 7.7 mg/dL (8.5-10.1); Creatinine, Blood 1.49 mg/dL (0.60-1.20); Globulin, Blood 3.7 g/dL (2.2-4.0); Potassium, Blood 3.5 mmol/L (3.5-5.5)
--- NOTE | 2019-11-15 16:30 | NUR ---
SHIFT SUMMARY PT AXO, PLEASANT AND COOPERATIVE WITH CARE THIS SHIFT. AFTER EXTENSIVE DISCUSSION ABOUT MOBILITY, QUALITY OF LIFE, PRESSURE ULCER PREVENTION, GOALS AND DECONDITIONING, PT AGREEABLE TO WORK WITH PHYSICAL THERAPY AND GET OOB TO RECLINER. PT WAS NOT YET ORDERED ON THIS PATIENT, DR SANTO NOTIFIED AND ORDER PLACED. PHYSICAL THERAP ASSESSED PT, SEE NOTE. PT UP TO RECLINER THROUGHOUT THE SHIFT. VS STABLE THOUGH HTN NOTED WITH MORNING AND AFTERNOON VS. PRN HYDRALAZINE NOT YET INDICATED PER ORDER, WILL CONTINUE TO MONITOR. PT RASH MEDICATED PER EMAR. PT DENIES PAIN. BED IN LOW POSITION, CALL LIGHT WITHIN REACH. NO OTHER CHANGES THIS SHIFT. IV PATENT AND SALINE LOCKED. PT ON TELE RUNNING SINUS AT 84 PER HEAT WEL[employer]. GUNN PATENT AND DRAINING CLEAR YELLOW URINE. THOUGH THIS NURSE EDUCATED PATIENT OF RISK OF UTI. PT STATES THAT HE PREFERS THAT THE GUNN STAY IN PLACE. THIS NURSE WILL DISCUSS D/C OF GUNN WITH ROUNDING.
--- NOTE | 2019-11-16 04:05 | NUR ---
SHIFT SUMMARY PT HAS BEEN A/O X4 DURING THE NIGHT. PT HAS REFUSED REPOSITIONING WHEN OFFERED. PT MOVES SELF SOMEWHAT IN BED. DENIES C/P AND SOB. PT IS TOLERATING PO INTAKE. GUNN IN PLACE, OFF FLOOR, PATENT. PT HAS BEEN SLEEPING MOST OF THE NIGHT. ASSISTED WITH ADL'S PRN. NO ACUTE CHANGES OVERNIGHT. WILL CONT. TO MONITOR.
[2019-11-16 05:07] LABS: BASOPHILS ABSOLUTE AUTO 0.02 K/mm3 (0.00-0.23); BASOPHILS PERCENT AUTO 0 % (0-2); EOSINOPHILS ABSOLUTE AUTO 0.42 K/mm3 (0.00-0.68); EOSINOPHILS PERCENT AUTO 7 % (0-6); Hematocrit 25.7 % (37.0-53.0); Hemoglobin 8.2 g/dL (13.5-17.5); IMMATURE GRAN ABSOLUTE AUTO 0.01 K/mm3 (0.00-0.10); IMMATURE GRAN PERCENT AUTO 0 % (0-1); LYMPHOCYTES ABSOLUTE AUTO 1.32 K/mm3 (0.84-5.20); LYMPHOCYTES PERCENT AUTO 22 % (21-46); MONOCYTES ABSOLUTE AUTO 0.78 K/mm3 (0.16-1.47); MONOCYTES PERCENT AUTO 13 % (4-13); Mean Corpuscular HGB 28.7 pg (26.0-34.0); Mean Corpuscular HGB Conc 31.9 g/dL (31.5-36.5); Mean Corpuscular Volume 90 fL (80-100); NEUTROPHILS ABSOLUTE AUTO 3.39 K/mm3 (1.96-9.15); NEUTROPHILS PERCENT AUTO 57 % (41-73); Platelet Count 234 K/mm3 (150-400); RDW Coefficient Variation 15.2 % (11.7-14.2); RDW Standard Deviation 50.2 fL (35.1-46.3); Red Blood Cell Count 2.86 M/mm3 (4.30-5.90); White Blood Cell Count 5.94 K/mm3 (4.00-11.30)
[2019-11-16 05:29] LABS: Albumin, Blood 1.4 g/dL (3.4-5.0); Albumin/Globulin Ratio 0.4 (0.8-1.8); Bilirubin, Total 0.1 mg/dL (0.1-1.0); Bun/Creatinine Ratio 19.1 (12.0-20.0); Calcium, Blood 7.7 mg/dL (8.5-10.1); Creatinine, Blood 1.41 mg/dL (0.60-1.20); Globulin, Blood 3.8 g/dL (2.2-4.0); Potassium, Blood 3.5 mmol/L (3.5-5.5); Total Protein, Blood 5.2 g/dL (6.4-8.2)
--- NOTE | 2019-11-16 17:04 | NUR ---
SHIFT SUMMARY PT AXO, PLEASANT AND COOPERATIVE WITH CARE. PATIENT WORKED WITH PHYSICAL THERAPY AND OCCUPATIONAL THERAPY THIS SHIFT, SEE ASSESSMENT. PT UP TO RECLINER THROUGHOUT THE SHIFT. VS THROUGHOUT THE SHIFT. PT STATES HE HAS NO PREFERENCE FOR WHICH SNF HE'D LIKE TO GO TO, [facility] NOTIFIED. LISSY TRAMMELL IN DISCHARGE PLANNING NOTIFIED THIS NURSE THAT SNF WILL NOT CONSIDER PT UNTIL HE HAS A FORMED BM SINCE HE HASNT HAD A BM SINCE 11/11/19. THIS NURSE NOTIFIED DR. FARLEY AND NEW ORDERS PLACED AND MEDS GIVEN PER EMAR. IV PATENT AND SALINE LOCKED. PT REQUETING BACK TO BED VIA LIFT AT THIS TIME. CALL LIGHT WITHIN REACH. NO OTHER CHANGES THIS SHIFT.
--- NOTE | 2019-11-17 04:46 | NUR ---
SHIFT SUMMARY PT [id number], VSS. PT DENIES PAIN AND SOB DURING SHIFT. NO BMS. GUNN PATENT AND DRAINING. PT REPOSITIONING SELF IN BED AND PRN. TOLERATING WELL. SCD'S IN PLACE. LEFT SIDED WEAKNESS NOTED IN PATIENT, PT STATES THIS HAS BEEN NORMAL FOR HIM. PLAN IS TO AWAIT FIRST SOLID BM BEFORE DISCHARGE.
[2019-11-17 05:17] LABS: BASOPHILS ABSOLUTE AUTO 0.02 K/mm3 (0.00-0.23); BASOPHILS PERCENT AUTO 0 % (0-2); EOSINOPHILS PERCENT AUTO 6 % (0-6); Hematocrit 25.5 % (37.0-53.0); Hemoglobin 8.2 g/dL (13.5-17.5); IMMATURE GRAN ABSOLUTE AUTO 0.01 K/mm3 (0.00-0.10); IMMATURE GRAN PERCENT AUTO 0 % (0-1); LYMPHOCYTES PERCENT AUTO 19 % (21-46); MONOCYTES ABSOLUTE AUTO 0.68 K/mm3 (0.16-1.47); MONOCYTES PERCENT AUTO 11 % (4-13); Mean Corpuscular HGB 28.7 pg (26.0-34.0); Mean Corpuscular HGB Conc 32.2 g/dL (31.5-36.5); Mean Corpuscular Volume 89 fL (80-100); Mean Platelet Volume 9.9 fL (9.1-12.4); NEUTROPHILS ABSOLUTE AUTO 3.92 K/mm3 (1.96-9.15); NEUTROPHILS PERCENT AUTO 63 % (41-73); Platelet Count 246 K/mm3 (150-400); RDW Coefficient Variation 15.1 % (11.7-14.2); Red Blood Cell Count 2.86 M/mm3 (4.30-5.90); White Blood Cell Count 6.23 K/mm3 (4.00-11.30)
[2019-11-17 05:37] LABS: Albumin, Blood 1.4 g/dL (3.4-5.0); Albumin/Globulin Ratio 0.4 (0.8-1.8); Bilirubin, Total 0.1 mg/dL (0.1-1.0); Calcium, Blood 7.8 mg/dL (8.5-10.1); Creatinine, Blood 1.41 mg/dL (0.60-1.20); Globulin, Blood 3.6 g/dL (2.2-4.0); Potassium, Blood 3.8 mmol/L (3.5-5.5)
--- NOTE | 2019-11-17 16:47 | NUR ---
Spiritual care note: Mr. Corona was pleasant and soft-spoken. He denied needs/concerns. He asked me to help him set up his new phone. He tells me he is pleased to be getting stronger and is looking forward to rehab and going home. He did not speak about is dtrs or being critically ill. I will remain available.
--- NOTE | 2019-11-17 19:48 | NUR ---
SHIFT SUMMARY: NO ACUTE CHANGES TO REPORT THIS SHIFT. PT A&O; CALM AND COOPERATIVE WITH CARE. NO C/O PAIN OR NAUSEA THIS SHIFT. GUNN IN PLACE; PATENT & DRAINING. PT UP IN CHIAR FOR MAJORITY OF DAY. PT BLIND. L SIDED WEAKNESS & CONTRACTED L HAND. BMs X3 THIS SHIFT; ALL SOFT OR FORMED; DISCHARGE PLANNERS AWARE. AWAITING PLACEMENT. REPORT GIVEN TO ONCOMING RN.
[2019-11-18 05:17] LABS: BASOPHILS ABSOLUTE AUTO 0.03 K/mm3 (0.00-0.23); BASOPHILS PERCENT AUTO 1 % (0-2); EOSINOPHILS ABSOLUTE AUTO 0.42 K/mm3 (0.00-0.68); EOSINOPHILS PERCENT AUTO 7 % (0-6); Hematocrit 25.7 % (37.0-53.0); Hemoglobin 7.9 g/dL (13.5-17.5); IMMATURE GRAN ABSOLUTE AUTO 0.01 K/mm3 (0.00-0.10); IMMATURE GRAN PERCENT AUTO 0 % (0-1); LYMPHOCYTES ABSOLUTE AUTO 1.55 K/mm3 (0.84-5.20); LYMPHOCYTES PERCENT AUTO 24 % (21-46); MONOCYTES ABSOLUTE AUTO 0.75 K/mm3 (0.16-1.47); MONOCYTES PERCENT AUTO 12 % (4-13); Mean Corpuscular HGB 27.9 pg (26.0-34.0); Mean Corpuscular HGB Conc 30.7 g/dL (31.5-36.5); Mean Corpuscular Volume 91 fL (80-100); Mean Platelet Volume 10.1 fL (9.1-12.4); NEUTROPHILS ABSOLUTE AUTO 3.58 K/mm3 (1.96-9.15); NEUTROPHILS PERCENT AUTO 57 % (41-73); Platelet Count 266 K/mm3 (150-400); RDW Coefficient Variation 14.9 % (11.7-14.2); RDW Standard Deviation 49.3 fL (35.1-46.3); Red Blood Cell Count 2.83 M/mm3 (4.30-5.90); White Blood Cell Count 6.34 K/mm3 (4.00-11.30)
[2019-11-18 05:44] LABS: Albumin, Blood 1.5 g/dL (3.4-5.0); Albumin/Globulin Ratio 0.4 (0.8-1.8); Bilirubin, Total 0.1 mg/dL (0.1-1.0); Bun/Creatinine Ratio 23.2 (12.0-20.0); Calcium, Blood 7.6 mg/dL (8.5-10.1); Creatinine, Blood 1.42 mg/dL (0.60-1.20); Globulin, Blood 3.7 g/dL (2.2-4.0); Potassium, Blood 3.8 mmol/L (3.5-5.5); Total Protein, Blood 5.2 g/dL (6.4-8.2)
--- NOTE | 2019-11-18 07:42 | NUR ---
11/18/19 0630 PT SLEPT MOST OF SHIFT. DENIES ANY PAIN JUST C/O BEING "VERY WEAK AND TIRED". PALE. VITALS STABLE. REPOSITIONED Q 2 HOURS WITH 2 STAFF. PT HELPS VERY LITTLE WITH CARE. UNEVENTFUL NIGHT.
--- NOTE | 2019-11-18 19:00 | NUR ---
PT. WITHOUT CHANGE THIIS SHIFT. PT. HAS NOT HAD A BM TODAY AND HAS DENIED THE NEED OF PAIN MEDS. PT. NOTED TO HAVE RASH T/O BODY. STILL WAITING FOR BED AT SNF.
[2019-11-19] MEDS ORDERED: ACET325 PO (15:30)
[2019-11-19] MEDS ORDERED: AMLO10 PO (15:31)
[2019-11-19] MEDS ORDERED: ATOR10 PO (15:32)
[2019-11-19] MEDS ORDERED: DEXTROSE 50% IV (15:33)
[2019-11-19] MEDS ORDERED: [UNRECOGNIZED DRUG - OTHER] IV (15:33)
[2019-11-19] MEDS ORDERED: Cymbalta30 MG PO (15:34)
[2019-11-19] MEDS ORDERED: GABA300 PO (15:34)
[2019-11-19] MEDS ORDERED: Senna S Tablet1 EACH PO (15:34)
[2019-11-19] MEDS ORDERED: INSR10I SC (15:36)
[2019-11-19] MEDS ORDERED: INSULANPEN SC (15:37)
[2019-11-19] MEDS ORDERED: LEVSOD150 PO (15:37)
[2019-11-19] MEDS ORDERED: METF500 PO (15:37)
[2019-11-19] MEDS ORDERED: PANT40 PO (15:38)
[2019-11-19] MEDS ORDERED: MIRALAX17 GM PO (15:38)
[2019-11-19] MEDS ORDERED: Zylet Eye Drops5 ML BOTHEYES (15:39)
[2019-11-19] MEDS ORDERED: Triamcinolone A15 G3 TOP (15:41)
[2019-11-19] MEDS ORDERED: POTA10T PO (15:41)
[2019-11-19] MEDS ORDERED: FURO40 PO (15:41)
--- NOTE | 2019-11-19 17:00 | NUR ---
PT DISCHARGED REPORT CALLED TO RN AT [facility] FOR TRANSFERE OF CARE, THE PT WAS TRANSFERED VIA WHEELCHAIR ACCOMPANIED BY [facility] , PT WAS ALOX3 BREATING EASILY ON RA AT THE TIME OF DC, THE PTS GUNN CATHETER WAS DC'D JUST PRIOR TO DC
== END 2019-11-19 16:55 | DRG 291 ==
LOC: ER 23:07 → ICUE 11-08 02:44 → MEDS 11-08 02:44 → PCU 11-08 02:44 → MEDS 11-08 02:52 → ICUE 11-08 10:35 → PCU 11-08 14:32 → MEDS 11-09 10:05 → ICUE 11-09 20:50 → ICUW 11-12 13:27 → ICUE 11-12 13:28 → PCU 11-12 16:20 → MEDS 11-13 13:24
PROVIDERS: Family Medicine; Internal Medicine Critical Care Medicine; Internal Medicine Gastroenterology; Nurse Practitioner Acute Care; Physician Assistant; ADMIT Internal Medicine
PROC: 30233N1 Transfusion of Nonautologous Red Blood Cells into Peripheral Vein, Percutaneous Approach (ICD-10-PCS; principal; 2019-11-10)
PROC: 0BH17EZ Insertion of Endotracheal Airway into Trachea, Via Natural or Artificial Opening (ICD-10-PCS; 2019-11-10)
PROC: 5A1945Z Respiratory Ventilation, 24-96 Consecutive Hours (ICD-10-PCS; 2019-11-10)
DX: I13.0 Hypertensive heart and chronic kidney disease with heart failure and stage 1 through stage 4 chronic kidney disease, or unspecified chronic kidney disease (principal); J96.01 Acute respiratory failure with hypoxia; I50.31 Acute diastolic (congestive) heart failure; R09.2 Respiratory arrest; D62 Acute posthemorrhagic anemia; I69.354 Hemiplegia and hemiparesis following cerebral infarction affecting left non-dominant side; N39.0 Urinary tract infection, site not specified; J98.11 Atelectasis; J91.8 Pleural effusion in other conditions classified elsewhere; N18.3 Chronic kidney disease, stage 3 (moderate); E11.22 Type 2 diabetes mellitus with diabetic chronic kidney disease; K59.00 Constipation, unspecified; E03.9 Hypothyroidism, unspecified; B95.2 Enterococcus as the cause of diseases classified elsewhere; E11.65 Type 2 diabetes mellitus with hyperglycemia; R13.10 Dysphagia, unspecified; E88.09 Other disorders of plasma-protein metabolism, not elsewhere classified; Z74.01 Bed confinement status; Z87.891 Personal history of nicotine dependence; E11.319 Type 2 diabetes mellitus with unspecified diabetic retinopathy without macular edema; Z66 Do not resuscitate; Z51.5 Encounter for palliative care
CPT/HCPCS: 0097U; 31500; 31720; 36415; 36416; 36430; 36600; 51702; 70450; 70551; 71045; 71260; 72141; 80048; 80053; 81001; 82085; 82550; 82607; 82728; 82746; 82803; 82947; 83036; 83516; 83540; 83550; 83605; 83735; 83880; 84100; 84132; 84165; 84425; 84439; 84443; 84481; 84484; 85014; 85018; 85025; 85027; 85045; 86038; 86160; 86225; 86235; 86850; 86880; 86900; 86901; 86923; 87040; 87077; 87086; 87186; 87324; 92526; 92610; 93005; 93010; 93306; 94002; 94003; 94762; 96374; 96375; 97110; 97112; 97162; 97166; 97530; 99285-25; A9270; A9270-GY; C9113; G0480; J0330; J0360; J0744; J1650; J1815; J1940; J2060; J2704; J3010; J3480; J7050; P9016; P9046; Q9967

== ENCOUNTER → 2019-11-28 | Outpatient (CLI) | payer OTHER ==
[~2019-11-28] MED LIST changes: +ACET325 PO; +AMLO5 PO; +ATOR20 PO; +Cymbalta30 MG PO; +DEXTROSE 50% IV; +FURO40 PO; +INSR10I SC; +INSULANPEN SC; +LEVSOD150 PO; +MIRALAX17 GM PO; +PANT40 PO; +POTA10T PO; +Senna S Tablet1 EACH PO; +TAMS.4ER PO; +Triamcinolone A15 G3 TOP; +Zylet Eye Drops5 ML BOTHEYES; +[UNRECOGNIZED DRUG - OTHER] IV
== END | disposition home or self-care (01) ==
LOC: EDSTATUS 09:47 → LAB RH 19:57
DX: N39.0 Urinary tract infection, site not specified (principal)
CPT/HCPCS: 87077; 87086; 87147; 87186

== ENCOUNTER → 2019-12-03 | Outpatient (CLI) | payer OTHER ==
[2019-12-03 18:57] LABS: Hematocrit 27.8 % (37.0-53.0); Hemoglobin 8.7 g/dL (13.5-17.5); Mean Corpuscular HGB 28.2 pg (26.0-34.0); Mean Corpuscular HGB Conc 31.3 g/dL (31.5-36.5); Mean Corpuscular Volume 90 fL (80-100); Mean Platelet Volume 10.2 fL (9.1-12.4); Platelet Count 477 K/mm3 (150-400); RDW Coefficient Variation 14.6 % (11.7-14.2); RDW Standard Deviation 47.7 fL (35.1-46.3); Red Blood Cell Count 3.08 M/mm3 (4.30-5.90); White Blood Cell Count 7.64 K/mm3 (4.00-11.30)
[2019-12-03 19:18] LABS: Albumin, Blood 2.2 g/dL (3.4-5.0); Albumin/Globulin Ratio 0.6 (0.8-1.8); Bilirubin, Total 0.2 mg/dL (0.1-1.0); Bun/Creatinine Ratio 25.2 (12.0-20.0); Calcium, Blood 8.1 mg/dL (8.5-10.1); Creatinine, Blood 1.51 mg/dL (0.60-1.20); Globulin, Blood 3.8 g/dL (2.2-4.0); Potassium, Blood 5.9 mmol/L (3.5-5.5)
== END | disposition home or self-care (01) ==
LOC: EDSTATUS 09:48 → LAB RH 17:40
PROVIDERS: Nurse Practitioner Family
DX: I50.31 Acute diastolic (congestive) heart failure (principal)
CPT/HCPCS: 80053; 85027

== ENCOUNTER 2019-12-09 13:42 | Emergency (ER) | payer SELFPAY ==
[~2019-12-09] VITALS: Ht 175.3 cm; Wt 86.2 kg
[~2019-12-09 13:42] MED LIST changes: -TAMS.4ER PO
[2019-12-09] MEDS ORDERED: TAMS.4ER PO (14:21)
[2019-12-09 14:57] LABS: BASOPHILS ABSOLUTE AUTO 0.07 K/mm3 (0.00-0.23); BASOPHILS PERCENT AUTO 1 % (0-2); EOSINOPHILS ABSOLUTE AUTO 0.42 K/mm3 (0.00-0.68); EOSINOPHILS PERCENT AUTO 5 % (0-6); Hematocrit 26.2 % (37.0-53.0); IMMATURE GRAN ABSOLUTE AUTO 0.06 K/mm3 (0.00-0.10); IMMATURE GRAN PERCENT AUTO 1 % (0-1); LYMPHOCYTES PERCENT AUTO 17 % (21-46); MONOCYTES ABSOLUTE AUTO 0.68 K/mm3 (0.16-1.47); MONOCYTES PERCENT AUTO 7 % (4-13); Mean Corpuscular HGB 28.1 pg (26.0-34.0); Mean Corpuscular HGB Conc 30.5 g/dL (31.5-36.5); Mean Corpuscular Volume 92 fL (80-100); NEUTROPHILS ABSOLUTE AUTO 6.48 K/mm3 (1.96-9.15); NEUTROPHILS PERCENT AUTO 70 % (41-73); Platelet Count 381 K/mm3 (150-400); RDW Coefficient Variation 14.8 % (11.7-14.2); RDW Standard Deviation 49.9 fL (35.1-46.3); Red Blood Cell Count 2.85 M/mm3 (4.30-5.90); White Blood Cell Count 9.31 K/mm3 (4.00-11.30)
[2019-12-09 15:43] LABS: Alanine Aminotransfer (ALT/SGP 23 U/L (12-78); Albumin, Blood 2.2 g/dL (3.4-5.0); Albumin/Globulin Ratio 0.5 (0.8-1.8); Alk Phos 111 U/L (50-136); Anion Gap 6 mmol/L (6-16); Aspartate Aminotrans (AST/SGOT 16 U/L (12-37); Bilirubin, Total <0.1 mg/dL (0.1-1.0); Blood Urea Nitrogen 39 mg/dL (8-24); CO2, Blood 25 mmol/L (21-32); Calcium, Blood 8.4 mg/dL (8.5-10.1); Chloride, Blood 110 mmol/L (98-108); Creatinine, Blood 1.56 mg/dL (0.60-1.20); Globulin, Blood 4.1 g/dL (2.2-4.0); Glomerular Filtration Rate 49 (60-); Glucose, Blood 157 mg/dL (70-99); Potassium, Blood 6.6 mmol/L (3.5-5.5); Sodium, Blood 141 mmol/L (136-145); Total Protein, Blood 6.3 g/dL (6.4-8.2)
[2019-12-09 18:15] LABS: Calcium, Ionized (POC) 1.19 mmol/L (1.10-1.46); Chloride (POC) 109 mmol/L (98-108); Creatinine (POC) 1.7 mg/dL (0.8-1.3); Glucose (ISTAT POC) 143 mg/dL (70-99); Hemoglobin (POC) 6.5 g/dL (13.5-17.5); Potassium (POC) 5.6 mmol/L (3.5-5.5); Sodium (POC) 139 mmol/L (135-148); Total CO2 (POC) 24 mmol/L (21-32)
== END 2019-12-09 19:41 | disposition home or self-care (01) ==
LOC: ER 13:42
PROVIDERS: Physician Assistant
DX: E87.5 Hyperkalemia (principal); I13.0 Hypertensive heart and chronic kidney disease with heart failure and stage 1 through stage 4 chronic kidney disease, or unspecified chronic kidney disease; E11.22 Type 2 diabetes mellitus with diabetic chronic kidney disease; I50.9 Heart failure, unspecified; N18.9 Chronic kidney disease, unspecified; D63.1 Anemia in chronic kidney disease; F32.9 Major depressive disorder, single episode, unspecified; Z79.899 Other long term (current) drug therapy; Z79.4 Long term (current) use of insulin; Z86.73 Personal history of transient ischemic attack (TIA), and cerebral infarction without residual deficits; Z87.891 Personal history of nicotine dependence
CPT/HCPCS: 36415; 51702; 80047; 80053; 82947; 85014; 85025; 93005; 93010; 94644; 96374; 96375; 99283-25; J1815; J1940

== ENCOUNTER → 2019-12-09 | Outpatient (CLI) | payer SELFPAY ==
[2019-12-09 12:08] LABS: Calcium, Blood 8.5 mg/dL (8.5-10.1); Creatinine, Blood 1.5 mg/dL (0.60-1.20); Potassium, Blood 6.5 mmol/L (3.5-5.5)
== END | disposition home or self-care (01) ==
LOC: EDSTATUS 10:09 → LAB RH 10:17
PROVIDERS: Nurse Practitioner Family
DX: E87.5 Hyperkalemia (principal)
CPT/HCPCS: 80048

== ENCOUNTER 2020-01-07 10:58 | Emergency (ER) | payer OTHER ==
[~2020-01-07] VITALS: Ht 175.3 cm; Wt 77.1 kg
[~2020-01-07 10:58] MED LIST changes: +TAMS.4ER PO
[2020-01-07 11:22] LABS: BASOPHILS ABSOLUTE AUTO 0.07 K/mm3 (0.00-0.23); BASOPHILS PERCENT AUTO 1 % (0-2); EOSINOPHILS ABSOLUTE AUTO 0.28 K/mm3 (0.00-0.68); EOSINOPHILS PERCENT AUTO 3 % (0-6); Hematocrit 27.3 % (37.0-53.0); Hemoglobin 8.8 g/dL (13.5-17.5); IMMATURE GRAN ABSOLUTE AUTO 0.06 K/mm3 (0.00-0.10); IMMATURE GRAN PERCENT AUTO 1 % (0-1); LYMPHOCYTES ABSOLUTE AUTO 1.44 K/mm3 (0.84-5.20); LYMPHOCYTES PERCENT AUTO 13 % (21-46); MONOCYTES ABSOLUTE AUTO 0.94 K/mm3 (0.16-1.47); MONOCYTES PERCENT AUTO 9 % (4-13); Mean Corpuscular HGB 27.5 pg (26.0-34.0); Mean Corpuscular HGB Conc 32.2 g/dL (31.5-36.5); Mean Corpuscular Volume 85 fL (80-100); Mean Platelet Volume 9.3 fL (9.1-12.4); NEUTROPHILS ABSOLUTE AUTO 8.18 K/mm3 (1.96-9.15); NEUTROPHILS PERCENT AUTO 75 % (41-73); Platelet Count 348 K/mm3 (150-400); RDW Coefficient Variation 14.9 % (11.7-14.2); RDW Standard Deviation 45.7 fL (35.1-46.3); White Blood Cell Count 10.97 K/mm3 (4.00-11.30)
[2020-01-07 11:48] LABS: Alanine Aminotransfer (ALT/SGP 27 U/L (12-78); Albumin, Blood 1.7 g/dL (3.4-5.0); Albumin/Globulin Ratio 0.4 (0.8-1.8); Alk Phos 133 U/L (50-136); Anion Gap 4 mmol/L (6-16); Aspartate Aminotrans (AST/SGOT 19 U/L (12-37); Bilirubin, Total 0.2 mg/dL (0.1-1.0); Blood Urea Nitrogen 28 mg/dL (8-24); Bun/Creatinine Ratio 19.7 (12.0-20.0); CO2, Blood 25 mmol/L (21-32); Chloride, Blood 110 mmol/L (98-108); Creatinine, Blood 1.42 mg/dL (0.60-1.20); Globulin, Blood 4.4 g/dL (2.2-4.0); Glomerular Filtration Rate 55 (60-); Glucose, Blood 345 mg/dL (70-99); Potassium, Blood 3.4 mmol/L (3.5-5.5); Sodium, Blood 139 mmol/L (136-145); Total Protein, Blood 6.1 g/dL (6.4-8.2); Troponin I <0.015 ng/mL (0.000-0.040)
== END 2020-01-07 16:36 | disposition home or self-care (01) ==
LOC: ER 10:58
PROVIDERS: Emergency Medicine
DX: R07.9 Chest pain, unspecified (principal); I16.0 Hypertensive urgency; I50.9 Heart failure, unspecified; E11.9 Type 2 diabetes mellitus without complications; F32.9 Major depressive disorder, single episode, unspecified; Z86.73 Personal history of transient ischemic attack (TIA), and cerebral infarction without residual deficits; Z79.899 Other long term (current) drug therapy; Z79.4 Long term (current) use of insulin
CPT/HCPCS: 36415; 71046; 80053; 83690; 84484; 85025; 93005; 93010; 96361; 96374; 99285-25; J0360; J7030

== ENCOUNTER → 2020-03-30 | Outpatient (CLI) | payer OTHER ==
[~2020-03-30] MED LIST changes: +BASAGLAR K100 UNIT/1 SC; +BISA10S PR; +FERSU300 PO; +GLIP5 PO; -INSULANPEN SC; +Lisinopril2.5 MG PO; +NOVOLOG FL100 UNIT/3 SC; +PIOG30 PO; +VITAMIN C125 MG PO; +ZOLP5 PO
== END | disposition home or self-care (01) ==
LOC: LAB SHORT 11:50 → LAB EV 11:50
DX: N39.0 Urinary tract infection, site not specified (principal)
CPT/HCPCS: 87077; 87086; 87186

== ENCOUNTER → 2020-06-06 | Outpatient (CLI) | payer OTHER ==
[~2020-06-06] MED LIST changes: +ATOR10 PO; -ATOR20 PO; +Artificial Tear15 ML BOTHEYES; +BASAGLAR K100 UNIT/6 SC; -Cymbalta30 MG PO; +DOCUZEN 8.6-501 EACH PO; +DULO60 PO; +LOPE2C PO; +ONDA4ODT SL; -Senna S Tablet1 EACH PO
[2020-06-06 17:39] LABS: Source, Urine Clean Catch
[2020-06-06 19:14] LABS: Appearance, Urine Cloudy (Clear); Bilirubin, Urine Neg (Neg); Blood, Urine 3+ (Neg); Color, Urine Yellow (P-Yellow); Glucose Qualitative, Urine 3+ (Neg); Ketones, Urine Neg (Neg); Leukocyte Esterase, Urine 3+ (Neg); Nitrite, Urine Pos (Neg); Protein, Urine 4+ (Neg); Specific Gravity, Urine 1.015 (1.003-1.022); Urobilinogen, Urine NORM (Normal)
[2020-06-06 19:27] LABS: Red Blood Cells, Urine 0-2 /hpf (0-2); White Blood Cells, Urine TNTC /hpf (0-5)
[2020-06-06 19:28] LABS: Bacteria Many /hpf; Squamous Epithelial Cells Not Seen /hpf (Few)
== END | disposition home or self-care (01) ==
LOC: EDSTATUS 14:37 → LAB RH 17:37
PROVIDERS: Family Medicine
DX: N39.0 Urinary tract infection, site not specified (principal)
CPT/HCPCS: 81001; 87077; 87086; 87147; 87186

== ENCOUNTER → 2020-06-23 | Outpatient (CLI) | payer OTHER ==
[2020-06-23 14:27] LABS: BASOPHILS ABSOLUTE AUTO 0.02 K/mm3 (0.00-0.23); BASOPHILS PERCENT AUTO 0 % (0-2); EOSINOPHILS ABSOLUTE AUTO 0.03 K/mm3 (0.00-0.68); EOSINOPHILS PERCENT AUTO 0 % (0-6); Hematocrit 19.4 % (37.0-53.0); IMMATURE GRAN ABSOLUTE AUTO 0.43 K/mm3 (0.00-0.10); IMMATURE GRAN PERCENT AUTO 4 % (0-1); LYMPHOCYTES ABSOLUTE AUTO 0.85 K/mm3 (0.84-5.20); LYMPHOCYTES PERCENT AUTO 8 % (21-46); MONOCYTES ABSOLUTE AUTO 0.66 K/mm3 (0.16-1.47); MONOCYTES PERCENT AUTO 6 % (4-13); Mean Corpuscular HGB 29.8 pg (26.0-34.0); Mean Corpuscular HGB Conc 30.4 g/dL (31.5-36.5); Mean Corpuscular Volume 98 fL (80-100); Mean Platelet Volume 10.1 fL (9.1-12.4); NEUTROPHILS ABSOLUTE AUTO 8.85 K/mm3 (1.96-9.15); NEUTROPHILS PERCENT AUTO 82 % (41-73); Platelet Count 285 K/mm3 (150-400); RDW Coefficient Variation 14.6 % (11.7-14.2); RDW Standard Deviation 51.6 fL (35.1-46.3); Red Blood Cell Count 1.98 M/mm3 (4.30-5.90); White Blood Cell Count 10.84 K/mm3 (4.00-11.30)
[2020-06-23 14:38] LABS: Hemoglobin 5.9 g/dL (13.5-17.5)
[2020-06-23 14:58] LABS: Thyroid Stimulating Hormone 0.242 uIU/mL (0.360-4.800)
[2020-06-23 15:09] LABS: Albumin, Blood 2.2 g/dL (3.4-5.0); Albumin/Globulin Ratio 0.6 (0.8-1.8); Bilirubin, Total 0.3 mg/dL (0.1-1.0); Calcium, Blood 7.5 mg/dL (8.5-10.1); Creatinine, Blood 7.61 mg/dL (0.60-1.20); Potassium, Blood 8.7 mmol/L (3.5-5.5); Total Protein, Blood 6.2 g/dL (6.4-8.2)
== END | disposition home or self-care (01) ==
LOC: LAB RH 14:17 → EDSTATUS 14:39
PROVIDERS: Nurse Practitioner Family
DX: I50.31 Acute diastolic (congestive) heart failure (principal); E11.41 Type 2 diabetes mellitus with diabetic mononeuropathy
CPT/HCPCS: 80053; 83036; 84443; 85025